=== PATIENT | female | born 1955 | race Caucasian/White ===

== ENCOUNTER 2017-08-28 22:40 | Inpatient (IN) | payer BC, MEDICAID, OTHER ==
[~2017-08-28] VITALS: Ht 170.2 cm; Wt 86.0 kg
[~2017-08-28 22:40] MED LIST: MELO1TAB56 PO
[2017-08-28] MEDS ORDERED: DILTIAZEM HCL 25 MG/5 ML VIAL IV ONE (23:00)
[2017-08-28] MEDS ORDERED: DIGOXIN (250MCG/ML) 2 ML AMPULE IV ONE (23:00)
[2017-08-28 23:04] LABS: Basophils # (auto) 0 uL; Basophils % (auto) 0.4 % (0.0-2.0); Eosinophils # (auto) 0.1 uL; Eosinophils % (auto) 1.2 % (0.0-7.0); Hematocrit 36.4 % (36.0-46.0); Hemoglobin 12.5 g/dL (12.2-16.2); Lymphocytes # (auto) 3.3 uL; Lymphocytes % (auto) 51.1 % (10.0-50.0); Mean Corpuscular Hemoglobin 30.6 pg (28.0-32.0); Mean Corpuscular Hgb Conc. 34.4 g/dL (32.0-36.0); Monocytes # (auto) 0.5 uL; Monocytes % (auto) 7.8 % (0.0-12.0); Neutrophils # (auto) 2.5 uL; Neutrophils % (auto) 39.5 % (37.0-80.0); Nucleated Red Blood Cells % 0.1 %; Platelet Count (auto) 226 10^3/uL (140-450); Red Blood Cells 4.09 10^6/uL (4.0-5.20); Red Cell Distribution Width 13.9 % (11.8-14.3); White Blood Cell 6.4 10^3/uL (4.4-10.8)
[2017-08-28] MEDS ORDERED: SODIUM CHLORIDE 0.9% 1,000 ML IV ONE (23:15)
[2017-08-28 23:19] LABS: INR 0.9 (0.9-1.15); Partial Thromboplastin Time 25.8 sec (22.64-33.71); Prothrombin Time 9.8 sec (9.37-12.3)
[2017-08-28 23:21] LABS: Albumin 3.7 g/dL (3.4-5.0); Anion Gap 12 (5-15); Blood Urea Nitrogen 24 mg/dL (7-18); Calcium 9.2 mg/dL (8.5-10.1); Carbon Dioxide 19 mmol/L (21-32); Chloride 110 mmol/L (98-107); Glucose 144 mg/dL (74-106); Magnesium 1.9 mg/dL (1.6-2.6); Potassium 3.4 mmol/L (3.5-5.1); Sodium 141 mmol/L (136-145)
[2017-08-28 23:23] LABS: Alanine Aminotransferase 45 U/L (13-56); Aspartate Aminotransferase 31 U/L (15-37); BUN/Creatinine Ratio 31.2; GFR African American 97 mL/min; GFR Non-African American 80 mL/min
[2017-08-28 23:28] LABS: Alkaline Phosphatase 88 U/L (45-117); Bilirubin, Total 0.3 mg/dL (0.2-1.0); Total Protein 6.7 g/dL (6.4-8.2)
[2017-08-29] MEDS ORDERED: DIGOXIN (250MCG/ML) 2 ML AMPULE IV ONE ×2 (00:15→17:15)
[2017-08-29] MEDS ORDERED: SODIUM CHLORIDE 0.9% 1,000 ML IV ONE (00:30)
[2017-08-29 00:53] LABS: Urine Bacteria NONE SEEN /hpf (None Seen); Urine Blood Negative /uL (Negative); Urine Specific Gravity 1.003 (1.001-1.035); Urine WBC 1 /hpf (0 - 5)
[2017-08-29] MEDS ORDERED: AMIODARONE HCL 150 MG in D5W 5% 100 ML IV ONE (02:45)
[2017-08-29] MEDS ORDERED: ACETAMINOPHEN 325 MG TAB PO PRN (02:45)
[2017-08-29] MEDS ORDERED: TEMAZEPAM 15 MG CAP PO PRN (02:45)
[2017-08-29] MEDS ORDERED: ONDANSETRON HCL 4 MG/2 ML VIAL IV PRN (02:45)
[2017-08-29] MEDS ORDERED: NITROGLYCERIN 0.4 MG SL TAB SL PRN (02:45)
[2017-08-29] MEDS ORDERED: MORPHINE SULFATE 4 MG/ML SYR/VIAL IV PRN (02:45)
[2017-08-29] MEDS ORDERED: POTASSIUM CHL 20 Meq TABLET PO ONE (02:45)
[2017-08-29] MEDS ORDERED: HYDROcodone-ACET 5/325MG TAB PO PRN (02:45)
[2017-08-29] MEDS ORDERED: AMIODARONE HCL 900 MG in DEXTROSE 500 ML IV SCH ×2 (02:46→08:46)
[2017-08-29] MEDS: SODIUM CHLORIDE 0.9% 1,000 ML IV SCH ×2 (03:03→16:19)
[2017-08-29] MEDS ORDERED: AMIODARONE HCL (50 MG/ ML) 3 ML VIAL IV ONE (03:08)
[2017-08-29] MEDS ORDERED: guaiFENesin-DM 100/10mg/5ml SYR PO ONE (05:45)
[2017-08-29] MEDS ORDERED: ENOXAPARIN SOD 40 MG/0.4 ML SYRINGE SC SCH (10:00)
[2017-08-29] MEDS: FAMOTIDINE 20 MG TAB PO SCH ×2 (10:35→22:20)
[2017-08-29] MEDS: ASPirin 81 mg TAB PO SCH (10:35)
[2017-08-29] MEDS ORDERED: IOHEXOL 350 MG/ML 100ML IJ ONE (13:49)
[2017-08-29] MEDS: IPRATROPIUM BROM 0.5 MG/2.5ML INH SOL NEB SCH ×3 (14:19→22:06)
[2017-08-29] MEDS: ALBUTEROL SULF 2.5 MG/0.5ML(0.5%) NEB SOLN NEB SCH ×3 (14:19→22:06)
[2017-08-29 15:10] VITALS: BP 101/64
[2017-08-29] MEDS: LIDOCAINE 5% TOPICAL PATCH TOP SCH (16:30)
[2017-08-29] MEDS: LEVOFLOXACIN 500MG 100 ML IV SCH (17:05)
[2017-08-29] MEDS: methylPREDNISolone SOD SUCC 40 MG/ML VL IV SCH ×2 (17:05→22:20)
[2017-08-29] MEDS ORDERED: ENOXAPARIN SOD 100 MG/1 ML SYRINGE SC SCH (22:00)
[2017-08-30] MEDS: ALBUTEROL SULF 2.5 MG/0.5ML(0.5%) NEB SOLN NEB SCH ×6 (02:35→22:00)
[2017-08-30] MEDS: IPRATROPIUM BROM 0.5 MG/2.5ML INH SOL NEB SCH ×6 (02:35→22:00)
[2017-08-30 03:54] LABS: Basophils # (auto) 0 uL; Eosinophils # (auto) 0 uL; Hematocrit 33.9 % (36.0-46.0); Hemoglobin 11.6 g/dL (12.2-16.2); Lymphocytes # (auto) 0.8 uL; Lymphocytes % (auto) 18.1 % (10.0-50.0); Mean Corpuscular Hemoglobin 30.9 pg (28.0-32.0); Mean Corpuscular Hgb Conc. 34.3 g/dL (32.0-36.0); Mean Corpuscular Volume 90.3 fL (80.0-100.0); Monocytes # (auto) 0.1 uL; Monocytes % (auto) 1.7 % (0.0-12.0); Neutrophils # (auto) 3.5 uL; Neutrophils % (auto) 80.2 % (37.0-80.0); Platelet Count (auto) 178 10^3/uL (140-450); Red Blood Cells 3.75 10^6/uL (4.0-5.20); Red Cell Distribution Width 14.4 % (11.8-14.3); White Blood Cell 4.4 10^3/uL (4.4-10.8)
[2017-08-30 03:57] LABS: Albumin 3.4 g/dL (3.4-5.0); Calcium 8.6 mg/dL (8.5-10.1); Potassium 4.1 mmol/L (3.5-5.1)
[2017-08-30 03:59] LABS: BUN/Creatinine Ratio 12.8
[2017-08-30 04:04] LABS: Bilirubin, Total 0.5 mg/dL (0.2-1.0); Total Protein 6.5 g/dL (6.4-8.2)
[2017-08-30] MEDS: SODIUM CHLORIDE 0.9% 1,000 ML IV SCH ×2 (05:25→20:00)
[2017-08-30 09:00] VITALS: BP 123/66
[2017-08-30] MEDS: FAMOTIDINE 20 MG TAB PO SCH ×2 (10:00→22:00)
[2017-08-30] MEDS: LIDOCAINE 5% TOPICAL PATCH TOP SCH (10:00)
[2017-08-30] MEDS: ENOXAPARIN SOD 80 MG/0.8ML SYRINGE SC SCH ×2 (11:11→22:17)
[2017-08-30] MEDS: ASPirin 81 mg TAB PO SCH (11:11)
[2017-08-30] MEDS: methylPREDNISolone SOD SUCC 40 MG/ML VL IV SCH ×2 (11:12→22:17)
[2017-08-30] MEDS: AMIODARONE HCL 200 MG TAB PO SCH (11:16)
[2017-08-30] MEDS: LEVOFLOXACIN 500MG 100 ML IV SCH (11:16)
[2017-08-30 13:00] VITALS: BP 132/83
[2017-08-30 17:00] VITALS: BP 136/82
[2017-08-30 23:38] VITALS: BP 140/80
[2017-08-31] MEDS: IPRATROPIUM BROM 0.5 MG/2.5ML INH SOL NEB SCH ×6 (02:00→22:28)
[2017-08-31] MEDS: ALBUTEROL SULF 2.5 MG/0.5ML(0.5%) NEB SOLN NEB SCH ×6 (02:00→22:28)
[2017-08-31 05:25] VITALS: BP 140/76
[2017-08-31 08:07] VITALS: BP 141/80
[2017-08-31] MEDS: FAMOTIDINE 20 MG TAB PO SCH ×2 (10:00→21:49)
[2017-08-31] MEDS: LIDOCAINE 5% TOPICAL PATCH TOP SCH (10:44)
[2017-08-31] MEDS: LEVOFLOXACIN 500MG 100 ML IV SCH (10:44)
[2017-08-31] MEDS: AMIODARONE HCL 200 MG TAB PO SCH (10:45)
[2017-08-31] MEDS: ASPirin 81 mg TAB PO SCH (10:46)
[2017-08-31] MEDS: ENOXAPARIN SOD 80 MG/0.8ML SYRINGE SC SCH ×2 (10:47→21:49)
[2017-08-31] MEDS: methylPREDNISolone SOD SUCC 40 MG/ML VL IV SCH ×2 (10:48→21:48)
[2017-08-31] MEDS: SODIUM CHLORIDE 0.9% 1,000 ML IV SCH ×2 (10:49→21:52)
[2017-08-31 12:22] VITALS: BP 129/75
[2017-08-31 16:00] VITALS: BP 140/92
[2017-08-31 20:00] VITALS: BP 137/88
[2017-08-31 22:00] VITALS: BP 137/88
[2017-09-01] MEDS: IPRATROPIUM BROM 0.5 MG/2.5ML INH SOL NEB SCH ×3 (03:50→09:59)
[2017-09-01] MEDS: ALBUTEROL SULF 2.5 MG/0.5ML(0.5%) NEB SOLN NEB SCH ×3 (03:50→09:59)
[2017-09-01 05:00] VITALS: BP 134/66
[2017-09-01 08:00] VITALS: BP 137/57
[2017-09-01 09:55] VITALS: BP 133/54
[2017-09-01] MEDS: LEVOFLOXACIN 500MG 100 ML IV SCH (09:57)
[2017-09-01] MEDS: methylPREDNISolone SOD SUCC 40 MG/ML VL IV SCH (09:57)
[2017-09-01] MEDS: ASPirin 81 mg TAB PO SCH (09:58)
[2017-09-01] MEDS: AMIODARONE HCL 200 MG TAB PO SCH (09:58)
[2017-09-01] MEDS: ENOXAPARIN SOD 80 MG/0.8ML SYRINGE SC SCH (09:59)
[2017-09-01] MEDS: LIDOCAINE 5% TOPICAL PATCH TOP SCH (09:59)
[2017-09-01] MEDS: FAMOTIDINE 20 MG TAB PO SCH (09:59)
== END 2017-09-01 12:29 | disposition home or self-care (01) | DRG 140 ==
LOC: ER 22:40 → EDBD 22:40 → EDUNIT# 22:40 → OVERFLOW 22:41 → TELE-WESTW 08-30 08:38
PROVIDERS: ADMIT Nurse Practitioner; ATTEND Internal Medicine
DX: J44.0 Chronic obstructive pulmonary disease with (acute) lower respiratory infection (principal); I95.9 Hypotension, unspecified; I48.0 Paroxysmal atrial fibrillation; I10 Essential (primary) hypertension; J20.9 Acute bronchitis, unspecified; J44.1 Chronic obstructive pulmonary disease with (acute) exacerbation; M19.90 Unspecified osteoarthritis, unspecified site; E87.6 Hypokalemia; Z87.891 Personal history of nicotine dependence
CPT/HCPCS: 36415; 71045; 71275; 80053; 81001; 83735; 83880; 84443; 84484; 85025; 85379; 85610; 85730; 87081; 93306; 94640; 94761; 96361; 96365; 96375; G0378; J1956; J7060

== ENCOUNTER 2019-01-13 14:18 | Inpatient (IN) | payer MEDICAID, OTHER ==
[~2019-01-13] VITALS: Ht 175.3 cm; Wt 72.2 kg
[2019-01-13 15:04] LABS: Basophils # (auto) 0 uL; Basophils % (auto) 0.5 % (0.0-2.0); Eosinophils # (auto) 0.1 uL; Hematocrit 40.3 % (36.0-46.0); Hemoglobin 14.2 g/dL (12.2-16.2); Lymphocytes # (auto) 2.8 uL; Lymphocytes % (auto) 38.4 % (10.0-50.0); Mean Corpuscular Hemoglobin 31.2 pg (28.0-32.0); Mean Corpuscular Hgb Conc. 35.2 g/dL (32.0-36.0); Mean Corpuscular Volume 88.8 fL (80.0-100.0); Monocytes # (auto) 0.5 uL; Monocytes % (auto) 6.5 % (0.0-12.0); Neutrophils # (auto) 3.9 uL; Neutrophils % (auto) 53.6 % (37.0-80.0); Platelet Count (auto) 244 10^3/uL (140-450); Red Blood Cells 4.54 10^6/uL (4.0-5.20); Red Cell Distribution Width 13.3 % (11.8-14.3); White Blood Cell 7.4 10^3/uL (4.4-10.8)
[2019-01-13] MEDS ORDERED: SODIUM CHLORIDE 0.9% 1,000 ML IV ONE (15:15)
[2019-01-13] MEDS ORDERED: DILTIAZEM HCL 25 MG/5 ML VIAL IV ONE ×2 (15:15→15:45)
[2019-01-13 15:20] LABS: Albumin 4.1 g/dL (3.4-5.0); Anion Gap 10 (5-15); Blood Urea Nitrogen 18 mg/dL (7-18); Calcium 9.4 mg/dL (8.5-10.1); Carbon Dioxide 21 mmol/L (21-32); Chloride 109 mmol/L (98-107); Glucose 129 mg/dL (74-106); Potassium 3.8 mmol/L (3.5-5.1); Sodium 140 mmol/L (136-145)
[2019-01-13 15:25] LABS: Alanine Aminotransferase 42 U/L (13-56); Alkaline Phosphatase 87 U/L (45-117); Aspartate Aminotransferase 34 U/L (15-37); BUN/Creatinine Ratio 24.3; Bilirubin, Total 0.6 mg/dL (0.2-1.0); GFR African American 102 mL/min; GFR Non-African American 84 mL/min; Total Protein 7.3 g/dL (6.4-8.2)
[2019-01-13 15:51] LABS: INR < 0.93 (0.9-1.15); Partial Thromboplastin Time 26.2 sec (23.64-32.05)
[2019-01-13] MEDS ORDERED: AMIODARONE HCL 900 MG in DEXTROSE 500 ML IV SCH (17:28)
[2019-01-13] MEDS ORDERED: AMIODARONE HCL 150 MG in D5W 5% 100 ML IV ONE (17:30)
[2019-01-13] MEDS ORDERED: MORPHINE SULF INJ 2 MG/ML SYRINGE 1ML IV PRN ×2 (18:15)
[2019-01-13] MEDS ORDERED: ONDANSETRON HCL 4 MG/2 ML VIAL IV PRN (18:15)
[2019-01-13] MEDS ORDERED: NITROGLYCERIN 0.4 MG SL TAB SL PRN (18:15)
[2019-01-13] MEDS ORDERED: ACETAMINOPHEN 500 MG TAB PO PRN (18:15)
[2019-01-13] MEDS ORDERED: HYDROcodone-ACET 5/325MG TAB PO PRN (18:15)
[2019-01-13 21:25] VITALS: BP 130/83
--- NOTE | 2019-01-13 21:25 | NUR ---
Admit to [facility] admitted to [facility] A/O x 4 via gurney on monitoring specialist, and portable 02. Patient transferred to bed, connected to unit monitoring, afib @ 130 and room air,sat 96% and weighed by bedscale. Patient oriented to Conchita Nath, primary RN, unit, room, bed, and unit policies regarding patient care and visiting hours. All questions and concerns addressed, patient verbalized understanding. NOTE: Amiodarone infusing in the right antecubital area @ 1mg/min.
[2019-01-13 21:30] VITALS: BP 130/83
[2019-01-13] MEDS: METOPROLOL TARTRATE 25 MG TAB PO SCH (22:54)
[2019-01-13] MEDS ORDERED: TIOT1AER IN (23:05)
[2019-01-13] MEDS: AMIODARONE HCL 900 MG in DEXTROSE 500 ML IV SCH (23:28)
--- NOTE | 2019-01-13 23:28 | NUR ---
Amiodarone regulated to 0.5mg/min per protocol, still afib 80's.
[2019-01-14] VITALS (7 sets, daily range): BP systolic 95–130; BP diastolic 44–70
--- NOTE | 2019-01-14 01:47 | NUR ---
CRITICAL TROP 0.83, CARDIOLOGY CONSULT PENDING AND WAS CALLED TO DR. DELGADO, PT IS ASYMPTOMATIC NO COMPLAINTS OF CHEST PAIN.
[2019-01-14 05:29] LABS: Basophils # (auto) 0 uL; Basophils % (auto) 0.4 % (0.0-2.0); Eosinophils # (auto) 0.1 uL; Eosinophils % (auto) 1.5 % (0.0-7.0); Hemoglobin 12.6 g/dL (12.2-16.2); Lymphocytes # (auto) 2.1 uL; Lymphocytes % (auto) 34.3 % (10.0-50.0); Mean Corpuscular Hemoglobin 30.8 pg (28.0-32.0); Mean Corpuscular Hgb Conc. 34.2 g/dL (32.0-36.0); Mean Corpuscular Volume 90.2 fL (80.0-100.0); Monocytes # (auto) 0.5 uL; Monocytes % (auto) 7.7 % (0.0-12.0); Neutrophils # (auto) 3.4 uL; Neutrophils % (auto) 56.1 % (37.0-80.0); Nucleated Red Blood Cells % 0.1 %; Platelet Count (auto) 207 10^3/uL (140-450); Red Cell Distribution Width 13.3 % (11.8-14.3); White Blood Cell 6.1 10^3/uL (4.4-10.8)
[2019-01-14 05:44] LABS: INR 0.95 (0.9-1.15); Partial Thromboplastin Time 25.8 sec (23.64-32.05)
[2019-01-14 06:12] LABS: BUN/Creatinine Ratio 20.3; Calcium 8.9 mg/dL (8.5-10.1)
[2019-01-14 07:12] LABS: Potassium 4.4 mmol/L (3.5-5.1)
--- NOTE | 2019-01-14 08:00 | NUR ---
End of shift note: Patient sitting up in bed receiving breathing treatment from RT. Patient A&O x self. Patient on the monitor, 3L NC saturation at 98%. Sanchez to gravity. Left AC 22G saline locked, patent, clean, dry, and intact. Peg tube right upper quadrant ABD clean dry, and intact running Jevity at 50ml/hr. No S/S of distress/SOB or pain. Bed locked and in the lowest position, side rails up x2, call light with in reach. Report to be given to customer program manager RN. Will continue to monitor. Addendum: 01/14/19 at 1822 by Angie Michael RN wrong patient
--- NOTE | 2019-01-14 08:00 | NUR ---
Opening Shift Note Assumed care of patient, awake and alert. Patient A&Ox4. Patient on the monitor. Patient on room air saturation at 94%, patient refused to wear NC at this time. IV right forearm 20G running Amiodarone at 0.5mg/hr, patent, clean, dry, and intact. Assisted patient to the bathroom with standby assist. Patient now sitting up on bedside chair. No S/S of distress/SOB or pain. Bed locked and in the lowest position, call light with in reach. Instructed on POC and to call for assist. Will continue to monitor.
--- NOTE | 2019-01-14 08:30 | NUR ---
Patient sitting up in bedside chair eating breakfast independently. Will continue to monitor.
[2019-01-14] MEDS: METOPROLOL TARTRATE 25 MG TAB PO SCH ×2 (09:50→22:21)
[2019-01-14] MEDS: FAMOTIDINE 20 MG TAB PO SCH (09:50)
[2019-01-14] MEDS ORDERED: ASPirin-EC 81 mg tab PO SCH (10:00)
[2019-01-14] MEDS ORDERED: ENOXAPARIN SOD 40 MG/0.4 ML SYRINGE SC SCH (10:00)
--- NOTE | 2019-01-14 10:00 | NUR ---
Medication dosages, usages, and side effects explained to patient. Patient verbalized understanding. Will continue to monitor.
--- NOTE | 2019-01-14 11:00 | NUR ---
Cynthia Brady DIRECTOR STUDENT UNION at bedside.
--- NOTE | 2019-01-14 12:30 | NUR ---
Patient sitting up on side of bed eating lunch independently. Will continue to monitor.
--- NOTE | 2019-01-14 15:00 | NUR ---
Dr. Painting at bedside.
[2019-01-14] MEDS ORDERED: SODIUM CHLORIDE 0.9% 1,000 ML IV SCH (16:07)
--- NOTE | 2019-01-14 16:30 | NUR ---
Cynthia Brady PRIME MINISTER at bedside. Explained to patient that they want to perform an Angiogram tomorrow. Patient agreed to have procedure.
[2019-01-14] MEDS: AMIODARONE HCL 900 MG in DEXTROSE 500 ML IV SCH (16:52)
--- NOTE | 2019-01-14 17:15 | NUR ---
Patient sitting up in bedside chair. No S/S of pain/SOB or distress at this time. Will continue to monitor.
--- NOTE | 2019-01-14 18:22 | NUR ---
End of shift Note: Patient sitting up in bedside chair eating dinner. Patient A&Ox4. Patient on the monitor. Patient on room air saturation at 96%. IV left forearm 20G running Amiodarone at 0.5mg/hr, patent, clean, dry, and intact. No S/S of distress/SOB or pain. Bed locked and in the lowest position, call light with in reach. Report to be given to rn night RN. Will continue to monitor.
--- NOTE | 2019-01-14 19:25 | NUR ---
OPENING SHIFT RECEIVED REPORT FROM DAY SHIFT RN. ASSUMED CARE OF PATIENT. PATIENT IN BED READING WITH NO SIGNS OR SYMPTOMS OF SOB, PAIN OR DISTRESS. CURRENTLY ON ROOM AIR, 02 SAT - 94%. UPDATED PATIENT ON PLAN OF CARE. LEFT FOREARM IV - CLEAN/DRY/INTACT. BED IN LOWEST POSITION, SIDE RAILS UP X2, CALL LIGHT WITHIN REACH. WILL CONTINUE TO MONITOR.
--- NOTE | 2019-01-15 01:15 | NUR ---
ROUNDS PATIENT IN BED SLEEPING WITH NO SIGNS OR SYMPTOMS OF SOB, PAIN OR DISTRESS. CURRENTLY ON ROOM AIR, 02 SAT - 96%. REPOSITIONED FOR COMFORT. BED IN LOWEST POSITION, SIDE RAILS UP X2, CALL LIGHT WITHIN REACH. WILL CONTINUE TO MONITOR.
[2019-01-15 04:00] VITALS: BP 149/64
[2019-01-15 05:40] LABS: Basophils # (auto) 0 uL; Basophils % (auto) 0.5 % (0.0-2.0); Eosinophils # (auto) 0.1 uL; Eosinophils % (auto) 1.4 % (0.0-7.0); Hematocrit 37.5 % (36.0-46.0); Hemoglobin 12.8 g/dL (12.2-16.2); Lymphocytes # (auto) 2.1 uL; Lymphocytes % (auto) 35.3 % (10.0-50.0); Mean Corpuscular Hemoglobin 31.1 pg (28.0-32.0); Mean Corpuscular Hgb Conc. 34.1 g/dL (32.0-36.0); Mean Corpuscular Volume 91.1 fL (80.0-100.0); Monocytes # (auto) 0.5 uL; Monocytes % (auto) 7.9 % (0.0-12.0); Neutrophils # (auto) 3.2 uL; Neutrophils % (auto) 54.9 % (37.0-80.0); Platelet Count (auto) 211 10^3/uL (140-450); Red Blood Cells 4.12 10^6/uL (4.0-5.20); Red Cell Distribution Width 13.4 % (11.8-14.3); White Blood Cell 5.9 10^3/uL (4.4-10.8)
[2019-01-15 05:59] LABS: BUN/Creatinine Ratio 18.8; Calcium 9.2 mg/dL (8.5-10.1); Potassium 4.2 mmol/L (3.5-5.1)
[2019-01-15 06:11] LABS: INR 0.95 (0.9-1.15); Partial Thromboplastin Time 26.2 sec (23.64-32.05)
--- NOTE | 2019-01-15 06:40 | NUR ---
END OF SHIFT PATIENT IN BED SLEEPING WITH NO SIGNS OR SYMPTOMS OF SOB, PAIN OR DISTRESS. CURRENTLY ON ROOM AIR, 02 SAT - 96%. REPOSITIONED FOR COMFORT. LEFT HAND AND LEFT FOREARM IV - CLEAN/DRY/INTACT. BED IN LOWEST POSITION, SIDE RAILS UP X2, CALL LIGHT WITHIN REACH. WILL ENDORSE CARE TO DAY SHIFT RN.
--- NOTE | 2019-01-15 07:30 | NUR ---
RECEIVED PATIENT SITTING UP IN THE BED TALKING ON THE PHONE A/O TIMES 4, O2 BY R/A, STATES SHE CAN GO TO THE BR, AWARE THAT SHE IS GOING FOR A HEART CATH TODAY AND IS NPO, SALINE LOCK TO THE LEFT HAND 20G FLUSHED AND PATENT, LFA 20G WITH AMIODARONE DRIP AT 16.66ML/HR INFUSING BY THE IV PUMP, DENIES PAIN
--- NOTE | 2019-01-15 07:50 | NUR ---
NOTIFIED BY RYANNE IN THE [employer] THAT THEY WILL BE HERE TO PICK THE PATIENT UP ABOUT 0830, MADE PATIENT AWARE
[2019-01-15 08:00] VITALS: BP 100/67
--- NOTE | 2019-01-15 08:00 | NUR ---
TALKING TO HER ON THE PHONE TO TELL HIM SHE IS GOING FOR THE HEART CATH EARLY
[2019-01-15] MEDS ORDERED: IOHEXOL 350 MG/ML 100ML IJ ONE (08:08)
[2019-01-15] MEDS ORDERED: LIDOCAINE 2%HCL (LOCAL ANESTH.) INJ 20ML MDV ONE (08:08)
--- NOTE | 2019-01-15 08:15 | NUR ---
TO THE BR TO TRY AND HAVE A BM BUT NO SUCCESS
--- NOTE | 2019-01-15 08:30 | NUR ---
[employer] EQUIPMENT REPAIRER PERSONN[employer] HERE TO DO PRE-OP SHAVING AND CHART CHECK
--- NOTE | 2019-01-15 08:45 | NUR ---
TRANSPORTED TO THE LOADING MACHINE TOOL SETTER BY THE BED FOR HEART CATH
[2019-01-15] MEDS ORDERED: fentaNYL CITRATE 100 MCG/2 ML VL ONE (09:07)
[2019-01-15] MEDS ORDERED: MIDAZOLAM HCL 1MG/1ML-2 ML VIAL ONE (09:07)
[2019-01-15] MEDS ORDERED: ANGIOMAX 250 MG VIAL IV ONE (09:07)
[2019-01-15] MEDS ORDERED: SODIUM CHL 0.9% 0 ML ONE (09:08)
--- NOTE | 2019-01-15 10:40 | NUR ---
BACK FROM THE BIRD TENDER, RT GROIN SITE BENIGN, SITE SOFT TO THE TOUCH
[2019-01-15] MEDS ORDERED: DIGOXIN (250MCG/ML) 2 ML AMPULE IV ONE ×2 (10:45→12:00)
--- NOTE | 2019-01-15 11:00 | NUR ---
PATIENT MOVING AROUND IN THE BED, EXPRESS TO HER NOT TO MOVE AROUND WE DON'T WANT THE SITE TO BLEED
[2019-01-15] MEDS: APIXABAN 2.5 MG TAB PO SCH ×2 (11:17→21:19)
[2019-01-15] MEDS: FAMOTIDINE 20 MG TAB PO SCH (11:17)
[2019-01-15] MEDS: METOPROLOL TARTRATE 25 MG TAB PO SCH (11:20)
--- NOTE | 2019-01-15 11:20 | NUR ---
EXPLAIN MEDICATIONS TO THE PATIENT REGARDING THE DOSAGE, USAGE AND THE SIDE EFFECTS, VERBALIZED THAT SHE UNDERSTOOD,
--- NOTE | 2019-01-15 11:30 | NUR ---
DIGOXIN GIVEN OVER 5MINUTES
--- NOTE | 2019-01-15 11:30 | NUR ---
SMALL AMOUNT OF BLEEDING TO THE RT GROIN SITE, HELD PRESSURE FOR 5 MINUTES, SITE STILL SOFT TO THE TOUCH, DRESSING MARKED
--- NOTE | 2019-01-15 11:45 | NUR ---
PATIENT STATES SHE GOT FLUSHED AFTER THE DIGOXIN WAS GIVEN AND FELT WEIRD BUT IS WENT AWAY STILL IN AFIB
[2019-01-15 11:51] VITALS: BP 118/79
--- NOTE | 2019-01-15 12:01 | NUR ---
AT THE BEDSIDE TALKING TO THE PATIENT
[2019-01-15] MEDS ORDERED: ALUM & MAG HYDROX-SIMETH LIQ(MAALOX) 30 ML PO PRN (13:00)
--- NOTE | 2019-01-15 13:00 | NUR ---
WAS ABLE TO SIT UP IN BED AND EAT HER LUNCH NO HELP NEEDED
--- NOTE | 2019-01-15 14:15 | NUR ---
LYING IN BED APPEARS TO BE SLEEPING
--- NOTE | 2019-01-15 15:35 | NUR ---
PATIENTS IN TO SEE THE PATIENT AND BROUGHT IN HER GRANDSON WHICH SHE HAS BEEN RAISING SINCE HE WAS 1YRS OLD, ONLY STAYED A FEW MINUTES
--- NOTE | 2019-01-15 15:39 | NUR ---
UP TO THE BR AND URINATED, RT GROIN SITE BENIGN, AND SOFT TO THE TOUCH
--- NOTE | 2019-01-15 15:40 | NUR ---
RT GROIN SITE DRESSING STILL HAS THE SMALL AMOUNT OF BLOOD TO IT PREVIOUS MARKINGS
[2019-01-15 16:00] VITALS: BP 102/64
[2019-01-15] MEDS: DILTIAZEM HCL 120MG ER CAP PO SCH (16:19)
--- NOTE | 2019-01-15 16:22 | NUR ---
PATIENT REFUSED TO TAKE THE CARDIZEM DUE TO B/P BEING 98/54, AND IT WAS IN THE 90'S PREVIOUS AN SHE STATED SHE FELT BAD AND DOESN'T WANT TO FEEL LIKE THAT AGAIN
--- NOTE | 2019-01-15 16:48 | NUR ---
B/P RECHECKED , STILL REFUSED TO TAKE THE CARDIZEM, TALKING ON THE PHONE
--- NOTE | 2019-01-15 17:17 | NUR ---
patient coughing states it feels like he has mucus stuck in his throat, gave some warm water to let him gargle Addendum: 01/15/19 at 1721 by Olivia Christiansen RN disregard the wrong patient
--- NOTE | 2019-01-15 17:21 | NUR ---
PATIENT GETTING UP TO THE BR TO HAVE A BM BUT NO RESULTS, EXPRESS TO HER THAT SHE SHOULD NOT BEING STRAINING TO HAVE A BM AND TRY NOT TO GET UP SOME MUCH, BECAUSE SHE DOESN'T WANT HER RT GROIN TO START BLEEDING, SAYS SHE UNDERSTANDS
--- NOTE | 2019-01-15 17:25 | NUR ---
RT GROIN DRESSING HAS A LITTLE MORE DRAINAGE TO IT, LIGHT PINK, BUT SITE IS SOFT TO THE TOUCH
--- NOTE | 2019-01-15 18:18 | NUR ---
DRAINAGE CIRCLED TO THE RT GROIN DRESSING FOR THE PLASTERER HELPER, RT GROIN SITE STILL SOFT TO THE TOUCH, DENIES PAIN, O2 BY R/A, SALINE LOCK 20G TO THE LFA AND TO THE LEFT HAND BOTH INTACT AND PATENT, USES THE BR, A/O TIMES 4 , DENIES PAIN, STILL HASN'T HAD A BM YET, WILL CONTINUE TO MONITOR AND GIVE REPORT TO THE NEXT SHIFT
--- NOTE | 2019-01-15 19:15 | NUR ---
OPENING SHIFT RECEIVED REPORT FROM DAY SHIFT RN. ASSUMED CARE OF PATIENT. PATIENT IN BED WATCHING TV WITH NO SIGNS OR SYMPTOMS OF SOB, PAIN OR DISTRESS. UPDATED PATIENT ON PLAN OF CARE. LEFT HAND AND LEFT FOREARM IV - CLEAN/DRY/INTACT. REPOSITIONED FOR COMFORT. RIGHT GROIN DRESSING S/P HEART CATH - MINIMAL DRAINAGE, NO SIGNS OF HEMATOMA OR PAIN AT SITE. BILATERAL PEDAL PULSES PRESENT. BED IN LOWEST POSITION, SIDE RAILS UP X2, CALL LIGHT WITHIN REACH. WILL CONTINUE TO MONITOR.
[2019-01-15 20:00] VITALS: BP 96/56
--- NOTE | 2019-01-15 23:30 | NUR ---
ROUNDS PATIENT IN BED SLEEPING WITH NO SIGNS OR SYMPTOMS OF SOB, PAIN OR DISTRESS. REPOSITIONED FOR COMFORT. BED IN LOWEST POSITION, SIDE RAILS UP X2, CALL LIGHT WITHIN REACH. WILL CONTINUE TO MONITOR.
[2019-01-15 23:55] VITALS: BP 91/60
[2019-01-16 04:00] VITALS: BP_SYST 101; BP_SYST 81; BP_DIAS 36; BP_DIAS 55
--- NOTE | 2019-01-16 05:18 | NUR ---
MORNING CARE PATIENT REFUSED MORNING CARE AT THIS TIME. CLEAN LINEN, WASH CLOTHS AND GOWN LEFT AT BED SIDE.
--- NOTE | 2019-01-16 05:18 | NUR ---
IV REMOVAL LEFT FOREARM IV REMOVED DUE TO INFILTRATION. CATHETER INTACT. WILL CONTINUE TO MONITOR.
--- NOTE | 2019-01-16 06:00 | NUR ---
MORNING CARE PATIENT PERFORMED MORNING CARE ON SELF, STANDBY ASSIST. PARTIAL LINEN CHANGE AND GOWN CHANGED.
--- NOTE | 2019-01-16 06:38 | NUR ---
END OF SHIFT PATIENT SITTING UP IN BED WITH NO SIGNS OR SYMPTOMS OF SOB, PAIN OR DISTRESS. CURRENTLY ON ROOM AIR, 02 SAT - 97%. UPDATED PATIENT ON PLAN OF CARE. LEFT HAND IV - CLEAN/DRY/INTACT. RIGHT GROIN DRESSING S/P HEART CATH - CLEAN/DRY/INTACT, WITH NO SIGNS OF HEMATOMA OR BLEEDING. BED IN LOWEST POSITION, SIDE RAILS UP X2, CALL LIGHT WITHIN REACH. WILL ENDORSE CARE TO DAY SHIFT RN.
--- NOTE | 2019-01-16 07:30 | NUR ---
RECEIVED PATIENT SITTING UP IN BED, A/O TIMES 4, O2 BY R/A, LEFT HAND 20G INTACT, DENIES PAIN, RT GROIN DRESSING INTACT, SITE SOFT TO THE TOUCH, GETS UP TO THE BATHROOM WITHOUT HELP
[2019-01-16 07:45] VITALS: BP 125/67
--- NOTE | 2019-01-16 08:29 | NUR ---
SITTING UP IN BED EATING HER BREAKFAST, NO HELP NEEDED TO EAT
--- NOTE | 2019-01-16 09:20 | NUR ---
UP TO THE BR NO HELP NEEDED
--- NOTE | 2019-01-16 09:52 | NUR ---
SITTING UP ON THE SIDE OF THE BED TALKING ON THE PHONE
[2019-01-16] MEDS: APIXABAN 2.5 MG TAB PO SCH ×2 (10:04→21:48)
[2019-01-16] MEDS: DILTIAZEM HCL 120MG ER CAP PO SCH (10:05)
[2019-01-16] MEDS: FAMOTIDINE 20 MG TAB PO SCH (10:05)
[2019-01-16] MEDS: DIGOXIN 0.25 MG TAB PO SCH (10:06)
--- NOTE | 2019-01-16 10:20 | NUR ---
EXPLAIN MEDICATIONS TO THE PATIENT REGARDING THE DOSAGE,USAGE, AND THE SIDE EFFECTS, VERBALIZED THAT SHE UNDERSTOOD AND MEDS GIVEN ORDERED
--- NOTE | 2019-01-16 10:33 | NUR ---
ICE PACK APPLIED TO THE LEFT FOREARM WHICH IS SWOLLEN AND WARM TO THE TOUCH, PATIENT STATES IT STARTED SWELLING THIS MORNING ABOUT 0500, NO IV FLUIDS INFUSING INTO THE ARM SINCE YESTERDAY MORNING
--- NOTE | 2019-01-16 11:27 | NUR ---
NO COMPLAINTS, SITTING UP IN BED TALKING ON THE PHONE
[2019-01-16 11:49] VITALS: BP 110/52
--- NOTE | 2019-01-16 12:23 | NUR ---
PATIENT SITTING UP IN THE BED DOING ARM EXERCISES ON HIS OWN Addendum: 01/16/19 at 1225 by Olivia Christiansen RN DISREGARD WRONG PATIENT
--- NOTE | 2019-01-16 12:25 | NUR ---
LYING IN BED ICE STILL TO THE LEFT ARM
--- NOTE | 2019-01-16 13:09 | NUR ---
SITTING UP IN BED EATING HER LUNCH,
--- NOTE | 2019-01-16 14:05 | NUR ---
WATCHING TV, NO COMPLAINTS
--- NOTE | 2019-01-16 15:13 | NUR ---
ICE PACK TO THE LFA AND ELEVATED ON PILLOWS, PATIENT TALKING ON THE PHONE
[2019-01-16 15:40] VITALS: BP 114/63
--- NOTE | 2019-01-16 16:25 | NUR ---
PATIENT SITTING UP IN THE BED TALKING ON THE FOOD, NO COMPLAINTS HAS BEEN UP WALING IN THE ROOM, HAS ICE TO THE LFA AND ELEVATED ON A PILLOW, STILL HAS A SMALL AMOUNT OF SWELLING
--- NOTE | 2019-01-16 17:15 | NUR ---
UP TO THE BR AND URINATED, WALKING IN THE ROOM DENIES CHEST PAIN
--- NOTE | 2019-01-16 18:20 | NUR ---
SITTING UP IN BED EATING HER DINNER, O2 BY R/A, A/O TIMES 4, GETS UP TO THE BR, SALINE LOCK TO THE LEFT HAND 20G, DRESSING TO THE RT GROIN NO NEW DRAINAGE SEEN, EXPRESS TO THE PATIENT THAT WE CAN CHANGE IT, STATES SHE WILL DO IT AFTER SHE GETS TO GO HOME AND TAKE A SHOWER, DENIES PAIN STILL HAS SOME SWELLING TO THE LFA, WILL CONTINUE TO MONITOR AND GIVE REPORT TO THE NEXT SHIFT.
--- NOTE | 2019-01-16 18:45 | NUR ---
DR LEZAMA IN TO SEE THE PATIENT AND WROTE DISCHARGE FOR TOMORROW MORNING, STATES SHE WILL BE IN TO SEE THE PATIENT BEFORE SHE IS TO BE DISCHARGED, CHANGED DRESSING TO THE RT GROIN AND SITE BENIGN AND PLACED BAND AID TO THE SITE, PRESCRIPTIONS GIVEN TO THE PATIENT
--- NOTE | 2019-01-16 19:20 | NUR ---
OPENING SHIFT RECEIVED REPORT FROM DAY SHIFT RN. ASSUMED CARE OF PATIENT. PATIENT SITTING UP IN BED WITH NO SIGNS OR SYMPTOMS OF SOB, PAIN OR DISTRESS. CURRENTLY ON ROOM AIR, 02 SAT - 97%. UPDATED PATIENT ON PLAN OF CARE. LEFT HAND IV - CLEAN/DRY/INTACT. BED IN LOWEST POSITION, SIDE RAILS UP X2, CALL LIGHT WITHIN REACH. WILL CONTINUE TO MONITOR.
[2019-01-16 20:02] VITALS: BP 112/62
[2019-01-16 23:46] VITALS: BP 97/57
--- NOTE | 2019-01-17 01:10 | NUR ---
ROUNDS PATIENT IN BED SLEEPING WITH NO SIGNS OR SYMPTOMS OF SOB, PAIN OR DISTRESS. BED IN LOWEST POSITION, SIDE RAILS UP X2, CALL LIGHT WITHIN REACH. WILL CONTINUE TO MONITOR.
[2019-01-17 04:00] VITALS: BP 101/51
--- NOTE | 2019-01-17 04:49 | NUR ---
MORNING CARE PATIENT REFUSED MORNING CARE AT THIS TIME. CLEAN LINEN, GOWN AND WASH CLOTHS LEFT AT BEDSIDE.
--- NOTE | 2019-01-17 07:25 | NUR ---
END OF SHIFT PATIENT SITTING UP IN BED WATCHING TV WITH NO SIGNS OR SYMPTOMS OF SOB, PAIN OR DISTRESS. UPDATED PATIENT ON PLAN OF CARE.LEFT HAND IV - CLEAN/DRY/INTACT. BED IN LOWEST POSITION, SIDE RAILS UPX2, CALL LIGHT WITHIN REACH. WILL ENDORSE CARE TO DAY SHIFT RN.
--- NOTE | 2019-01-17 07:30 | NUR ---
Opening note; Patient A&O x 4, denies any pain, patient states they are ready to go home. Patient was updated on plan of care, As soon as Dr. Beckman sees patient she will be able to go home, patient understands. Vital Signs WNL. Continue to monitor.
[2019-01-17 08:00] VITALS: BP 113/68
--- NOTE | 2019-01-17 09:58 | NUR ---
Dr. Beckman at bedside with patient.
[2019-01-17] MEDS: APIXABAN 2.5 MG TAB PO SCH (10:10)
[2019-01-17] MEDS: FAMOTIDINE 20 MG TAB PO SCH (10:10)
[2019-01-17] MEDS: DILTIAZEM HCL 120MG ER CAP PO SCH (10:10)
[2019-01-17] MEDS: DIGOXIN 0.25 MG TAB PO SCH (10:10)
[2019-01-17 11:26] VITALS: BP 138/74
--- NOTE | 2019-01-17 11:59 | NUR ---
D/C & IV d/c IV discontinued, site benign, catheter intact, pressure dressing applied. Patient discharged via wheel chair, no questions at this time, D/C instructions explained in detail. Is aware to follow up with primary and Socrates Avila (Lead Mechanic). Patient vital signs WNL.
[2019-01-17 12:00] VITALS: BP 121/69
== END 2019-01-17 12:04 | disposition home or self-care (01) | DRG 281 ==
LOC: ER 14:18 → TELE 14:19 → DOU IN ICU 20:11
PROVIDERS: ADMIT Nurse Practitioner Acute Care; ATTEND Internal Medicine
PROC: B2111ZZ Fluoroscopy of Multiple Coronary Arteries using Low Osmolar Contrast (ICD-10-PCS; principal; 2019-01-15)
PROC: 4A023N7 Measurement of Cardiac Sampling and Pressure, Left Heart, Percutaneous Approach (ICD-10-PCS; 2019-01-15)
PROC: B2151ZZ Fluoroscopy of Left Heart using Low Osmolar Contrast (ICD-10-PCS; 2019-01-15)
DX: I48.0 Paroxysmal atrial fibrillation (principal); I21.A1 Myocardial infarction type 2; I50.42 Chronic combined systolic (congestive) and diastolic (congestive) heart failure; M19.90 Unspecified osteoarthritis, unspecified site; J43.9 Emphysema, unspecified; F20.9 Schizophrenia, unspecified; F41.9 Anxiety disorder, unspecified; E02 Subclinical iodine-deficiency hypothyroidism; I11.0 Hypertensive heart disease with heart failure; Z80.1 Family history of malignant neoplasm of trachea, bronchus and lung; Z82.49 Family history of ischemic heart disease and other diseases of the circulatory system; Z90.710 Acquired absence of both cervix and uterus; Z87.891 Personal history of nicotine dependence; Z88.8 Allergy status to other drugs, medicaments and biological substances
CPT/HCPCS: 36415; 71045; 80048; 80053; 80162; 83735; 83880; 84443; 84484; 85025; 85610; 85730; 86141; 86850; 86900; 86901; 87081; 93005; 93306; 93458; 94761; 96361; 96365; 96375; 99152; 99153; G0378; J2250; J7060

== ENCOUNTER 2023-05-04 11:27 | Inpatient (IN) | payer OTHER ==
[~2023-05-04] VITALS: Ht 170.2 cm; Wt 81.0 kg
[~2023-05-04 11:27] MED LIST changes: +ALBUAER3 IN; +APIX2.5T PO; +CLOP75TA28 PO; +DIGO1TAB48 PO; +DOXY-286 PO; +DOXY100C4 PO; +MELO-335 PO; -MELO1TAB56 PO; +TIOT1AER IN
[2023-05-04 12:45] LABS: Basophils # (auto) 0 10 ^3/uL (0-0.2); Basophils % (auto) 0.1 % (0.0-2.0); Eosinophils # (auto) 0 10 ^3/uL (0-0.8); Eosinophils % (auto) 0.4 % (0.0-7.0); Hematocrit 39.7 % (36.0-46.0); Hemoglobin 13.4 g/dL (12.2-16.2); Lymphocytes # (auto) 1.5 10 ^3/uL (0.4-5.4); Lymphocytes % (auto) 18.9 % (10.0-50.0); Mean Corpuscular Hgb Conc. 33.7 g/dL (32.0-36.0); Monocytes # (auto) 0.4 10 ^3/uL (0-1.3); Neutrophils # (auto) 5.8 10 ^3/uL (1.6-8.6); Neutrophils % (auto) 75.6 % (37.0-80.0); Nucleated Red Blood Cells % 0.1 %; Red Blood Cells 4.32 10^6/uL (4.0-5.20); Red Cell Distribution Width 13.8 % (11.8-14.3); White Blood Cell 7.7 10^3/uL (4.4-10.8)
[2023-05-04 12:59] LABS: Alanine Aminotransferase 109 U/L (7-40); Albumin 4.6 g/dL (3.2-4.8); Alkaline Phosphatase 55 U/L (46-116); Anion Gap 8 (5-15); Aspartate Aminotransferase 78 U/L (13-40); BUN/Creatinine Ratio 28.2 (10.0-20.0); Blood Urea Nitrogen 11 mg/dL (9-23); Calcium 9.8 mg/dL (8.5-10.1); Carbon Dioxide 25 mmol/L (20-30); Chloride 106 mmol/L (98-107); Glucose 104 mg/dL (74-106); Potassium 4.3 mmol/L (3.5-5.1); Sodium 139 mmol/L (136-145)
[2023-05-04 13:00] LABS: Bilirubin, Total 0.9 mg/dL (0.2-1.0); Total Protein 6.7 g/dL (5.7-8.2)
[2023-05-04 14:07] LABS: INR 0.99 (0.9-1.15); Partial Thromboplastin Time 27.7 SEC (24.5-34.5); Prothrombin Time 10.4 sec (9.3-11.8)
[2023-05-04] MEDS ORDERED: MORPHINE SULFATE INJ 2 MG/ml SYRG IV ONE (16:15)
[2023-05-04] MEDS ORDERED: MORPHINE SULFATE INJ 2 MG/ml SYRG IV PRN ×2 (16:15→21:45)
[2023-05-04] MEDS ORDERED: ACETAMINOPHEN 325 MG TAB PO PRN (16:15)
[2023-05-04] MEDS: HYDROcodone-ACET 5/325MG TAB PO PRN (17:13)
[2023-05-04] MEDS: SODIUM CHLOR 0.9% PF (SALINE LOCK) 10ML VIAL/SYR IV SCH (22:05)
[2023-05-04 22:59] VITALS: BP 114/60; PULSE 70; RESP 18; TEMP 98.3; O2SAT 90
[2023-05-04 23:59] VITALS: PULSE 70; RESP 18; O2SAT 94
[2023-05-05] MEDS: HYDROcodone-ACET 5/325MG TAB PO PRN ×4 (00:27→22:17)
[2023-05-05] MEDS ORDERED: FUR20T PO (00:34)
[2023-05-05 05:00] VITALS: BP 96/56; PULSE 75; RESP 18; TEMP 98.7; O2SAT 94
[2023-05-05] MEDS: SODIUM CHLOR 0.9% PF (SALINE LOCK) 10ML VIAL/SYR IV SCH ×3 (05:34→21:32)
[2023-05-05 08:07] LABS: Basophils # (auto) 0 10 ^3/uL (0-0.2); Basophils % (auto) 0.3 % (0.0-2.0); Eosinophils # (auto) 0 10 ^3/uL (0-0.8); Eosinophils % (auto) 0.9 % (0.0-7.0); Hematocrit 36.1 % (36.0-46.0); Hemoglobin 12.3 g/dL (12.2-16.2); Lymphocytes # (auto) 1.2 10 ^3/uL (0.4-5.4); Lymphocytes % (auto) 25.1 % (10.0-50.0); Mean Corpuscular Hemoglobin 31.3 pg (28.0-32.0); Mean Corpuscular Hgb Conc. 34.1 g/dL (32.0-36.0); Mean Corpuscular Volume 91.8 fL (80.0-100.0); Monocytes # (auto) 0.3 10 ^3/uL (0-1.3); Monocytes % (auto) 7.1 % (0.0-12.0); Neutrophils # (auto) 3.3 10 ^3/uL (1.6-8.6); Neutrophils % (auto) 66.6 % (37.0-80.0); Red Blood Cells 3.93 10^6/uL (4.0-5.20); Red Cell Distribution Width 13.8 % (11.8-14.3); White Blood Cell 4.9 10^3/uL (4.4-10.8)
[2023-05-05 08:37] LABS: Alanine Aminotransferase 88 U/L (7-40); Albumin 4.2 g/dL (3.2-4.8); Alkaline Phosphatase 51 U/L (46-116); Anion Gap 7 (5-15); Aspartate Aminotransferase 53 U/L (13-40); BUN/Creatinine Ratio 37.1 (10.0-20.0); Blood Urea Nitrogen 13 mg/dL (9-23); Calcium 9.6 mg/dL (8.5-10.1); Carbon Dioxide 27 mmol/L (20-30); Chloride 105 mmol/L (98-107); Glucose 95 mg/dL (74-106); Potassium 4.3 mmol/L (3.5-5.1); Sodium 139 mmol/L (136-145)
[2023-05-05 08:38] LABS: Bilirubin, Total 1.4 mg/dL (0.2-1.0); Total Protein 6.1 g/dL (5.7-8.2)
[2023-05-05 09:00] VITALS: BP 116/60; PULSE 72; RESP 18; TEMP 97.7; O2SAT 99
[2023-05-05 13:00] VITALS: BP 114/62; PULSE 87; RESP 18; TEMP 98.5; O2SAT 91
[2023-05-05 17:00] VITALS: BP 120/51; PULSE 84; RESP 18; TEMP 98.4; O2SAT 94
[2023-05-05] MEDS ORDERED: TRIAMCINOLONE 40MG/ML 1ML VIAL IM ONE (20:15)
[2023-05-05] MEDS ORDERED: LORazepam 2MG/ML-1ML VIAL IV PRN (21:00)
[2023-05-05] MEDS: APIXABAN 2.5 MG TAB PO SCH (21:32)
[2023-05-05 22:00] VITALS: BP 110/73; PULSE 84; RESP 19; TEMP 98.9; O2SAT 93
[2023-05-05] MEDS ORDERED: methylPREDNISolone ACETATE 80 MG/ML VL IM ONE (22:15)
[2023-05-06 05:00] VITALS: BP 114/57; PULSE 80; RESP 19; TEMP 98.2; O2SAT 92
[2023-05-06] MEDS: SODIUM CHLOR 0.9% PF (SALINE LOCK) 10ML VIAL/SYR IV SCH ×3 (05:12→21:26)
[2023-05-06] MEDS: HYDROcodone-ACET 5/325MG TAB PO PRN ×3 (05:13→20:37)
[2023-05-06 09:00] VITALS: BP 102/57; PULSE 76; RESP 18; TEMP 97.8; O2SAT 92
[2023-05-06] MEDS: APIXABAN 2.5 MG TAB PO SCH ×2 (09:24→21:26)
[2023-05-06] MEDS: TIOTROPIUM OLODATEROL IN SCH (09:25)
[2023-05-06] MEDS ORDERED: ACETAMINOPHEN 325 MG TAB PO PRN (09:30)
[2023-05-06 13:19] VITALS: BP 118/75; PULSE 90; RESP 19; TEMP 98.2; O2SAT 93
[2023-05-06 17:00] VITALS: BP 106/57; PULSE 87; RESP 19; TEMP 98.1; O2SAT 92
[2023-05-06 22:00] VITALS: BP_SYST 102; BP_SYST 108; BP_DIAS 68; BP_DIAS 72; PULSE 88; PULSE 92; RESP 16; TEMP 97.6; TEMP 98.6; O2SAT 92; O2SAT 99
[2023-05-07 05:00] VITALS: BP 108/64; PULSE 66; RESP 16; TEMP 97.3; O2SAT 93
[2023-05-07] MEDS: SODIUM CHLOR 0.9% PF (SALINE LOCK) 10ML VIAL/SYR IV SCH ×4 (06:00→22:00)
[2023-05-07 08:44] LABS: Basophils # (auto) 0 10 ^3/uL (0-0.2); Basophils % (auto) 0.3 % (0.0-2.0); Eosinophils # (auto) 0.1 10 ^3/uL (0-0.8); Eosinophils % (auto) 1.5 % (0.0-7.0); Hematocrit 37.8 % (36.0-46.0); Hemoglobin 12.6 g/dL (12.2-16.2); Lymphocytes # (auto) 1.4 10 ^3/uL (0.4-5.4); Lymphocytes % (auto) 26.6 % (10.0-50.0); Mean Corpuscular Hemoglobin 30.9 pg (28.0-32.0); Mean Corpuscular Hgb Conc. 33.4 g/dL (32.0-36.0); Mean Corpuscular Volume 92.4 fL (80.0-100.0); Monocytes # (auto) 0.4 10 ^3/uL (0-1.3); Monocytes % (auto) 7.7 % (0.0-12.0); Neutrophils # (auto) 3.3 10 ^3/uL (1.6-8.6); Neutrophils % (auto) 63.9 % (37.0-80.0); Red Blood Cells 4.09 10^6/uL (4.0-5.20); Red Cell Distribution Width 13.6 % (11.8-14.3); White Blood Cell 5.2 10^3/uL (4.4-10.8)
[2023-05-07 09:00] VITALS: BP 111/67; PULSE 78; RESP 18; TEMP 97.3; O2SAT 91
[2023-05-07 09:03] LABS: Alanine Aminotransferase 81 U/L (7-40); Albumin 4.4 g/dL (3.2-4.8); Alkaline Phosphatase 54 U/L (46-116); Anion Gap 6 (5-15); Aspartate Aminotransferase 52 U/L (13-40); BUN/Creatinine Ratio 14.7 (10.0-20.0); Blood Urea Nitrogen 5 mg/dL (9-23); Calcium 9.8 mg/dL (8.5-10.1); Carbon Dioxide 27 mmol/L (20-30); Chloride 105 mmol/L (98-107); Glucose 100 mg/dL (74-106); Potassium 3.9 mmol/L (3.5-5.1); Sodium 138 mmol/L (136-145); Total Protein 6.5 g/dL (5.7-8.2)
[2023-05-07] MEDS: APIXABAN 2.5 MG TAB PO SCH ×2 (09:03→19:42)
[2023-05-07] MEDS: TIOTROPIUM OLODATEROL IN SCH (09:03)
[2023-05-07] MEDS: HYDROcodone-ACET 5/325MG TAB PO PRN ×3 (09:03→19:42)
[2023-05-07 09:14] LABS: Creatine Kinase IFCC 1923 U/L (34-145)
[2023-05-07 09:38] LABS: Magnesium 1.8 mg/dL (1.6-2.6)
[2023-05-07 13:12] VITALS: BP 114/65; PULSE 87; RESP 18; TEMP 97.8; O2SAT 93
[2023-05-07 16:07] VITALS: BP 119/67; PULSE 66; RESP 18; TEMP 98.4; O2SAT 93
[2023-05-07 20:00] VITALS: BP 118/66; PULSE 68; RESP 18; TEMP 98.4
[2023-05-07 22:00] VITALS: BP 120/64; PULSE 43; RESP 18; TEMP 98.4; O2SAT 92
[2023-05-08] MEDS: HYDROcodone-ACET 5/325MG TAB PO PRN ×2 (04:55→09:00)
[2023-05-08 05:00] VITALS: BP 113/64; PULSE 77; RESP 20; TEMP 97.6; O2SAT 94
[2023-05-08] MEDS: SODIUM CHLOR 0.9% PF (SALINE LOCK) 10ML VIAL/SYR IV SCH (07:03)
[2023-05-08 08:00] VITALS: PULSE 78; RESP 19; O2SAT 93
[2023-05-08] MEDS: APIXABAN 2.5 MG TAB PO SCH (08:59)
[2023-05-08] MEDS: TIOTROPIUM OLODATEROL IN SCH (09:01)
[2023-05-08 09:14] VITALS: BP 127/67; PULSE 78; RESP 19; TEMP 97.7; O2SAT 93
[2023-05-08 10:24] VITALS: BP 127/67; PULSE 78; RESP 19; TEMP 97.7; O2SAT 93
== END 2023-05-08 12:30 | disposition home health service (06) | DRG 605 ==
LOC: ER 11:27 → EDBD 11:27 → OVERFLOW 16:26 → EAST 22:44 → OBSVTOIN 05-06 12:23
PROVIDERS: ADMIT Student in an Organized Health Care Education/Training Program; ATTEND Student in an Organized Health Care Education/Training Program
DX: S70.01XA Contusion of right hip, initial encounter (principal); G82.20 Paraplegia, unspecified; M62.82 Rhabdomyolysis; E78.5 Hyperlipidemia, unspecified; I10 Essential (primary) hypertension; F17.200 Nicotine dependence, unspecified, uncomplicated; I48.91 Unspecified atrial fibrillation; W18.39XA Other fall on same level, initial encounter; G57.81 Other specified mononeuropathies of right lower limb; J44.9 Chronic obstructive pulmonary disease, unspecified; Z80.1 Family history of malignant neoplasm of trachea, bronchus and lung; Z95.1 Presence of aortocoronary bypass graft; Z88.2 Allergy status to sulfonamides; Z88.8 Allergy status to other drugs, medicaments and biological substances; Z88.0 Allergy status to penicillin; Z82.49 Family history of ischemic heart disease and other diseases of the circulatory system; Z90.710 Acquired absence of both cervix and uterus; Y93.89 Activity, other specified; Y92.89 Other specified places as the place of occurrence of the external cause; Y99.8 Other external cause status
CPT/HCPCS: 36415; 71045; 72146; 72192; 80053; 82550; 83735; 85025; 85610; 85730; 97110; 97116; 97163; 97530; G0378

== ENCOUNTER 2024-11-14 06:22 | Inpatient (IN) | payer OTHER ==
[~2024-11-14] VITALS: Ht 177.8 cm; Wt 87.1 kg
[~2024-11-14 06:22] MED LIST changes: -DOXY-286 PO; -DOXY100C4 PO; +FURO20TA4 PO; -MELO-335 PO; +MELO15TA29 PO
[2024-11-14] MEDS: ONDANSETRON ODT 4 MG TAB PO ONE (06:45)
[2024-11-14] MEDS: ALPRAZolam 0.25 MG TAB PO ONE (06:45)
--- NOTE | 2024-11-14 06:45 | ECG ---
[facility] Test Date: 2024-11-14 Test Time: 06:33:33 Pat Name: KATYA BELL Department: ED Room: [address] [place] [address] Gender: F Blankmaker: : [id number] Requested By: TITO YEN Order Number: [id number] Reading MD: Medardo Rodriguez Measurements Intervals [place] Rate: 79 P: 12 AL: 156 QRS: -65 QRSD: 164 T: 108 QT: 421 QTc: 483 Interpretive Statements Sinus rhythm Probable left atrial enlargement Left bundle branch block Electronically Signed On 11-14-2024 17:32:48 PDT by Medardo Rodriguez Please click the below link to view image of tracing.
[2024-11-14] MEDS: MECLIZINE HCL 25 MG TAB PO ONE (06:52)
--- NOTE | 2024-11-14 06:52 | ED.PDOC ---
HPI (NEURO) HPI Comments 69 y/o F, BIBA, with PMHx of CAD, COPD, AFib, HLD, and HCM presents to the ED for CC of dizziness. EMS reports, patient is coming from home where she c/o dizziness with associated hypertension onset, 0300 this morning (11/14/24). Patient relays, dizziness to have woken her up out of her sleep, feeling as if the room was spinning around her. Patient comments, that symptoms prompted her to check her blood pressure; endorses reading of 180/90mmHg. Patient denies nausea, vomiting, chest pain, or shortness of breath. No other symptoms or modifying factors present at this time. Chief Complaint: Dizziness Time Seen by MD: 06:40 Primary Care Provider: LANCE Garrison Notes: Nurses Notes, Heat Seal Operator Notes, Medications, Allergies Information Source: Patient, Emergency Med Personnel Mode of Arrival: EMS Severity: Moderate Dizziness/Weakness Severity: Unable to do activities Headache Severity: None Timing: Hours Duration: Since onset Prehospital treatment: None Onset: At rest Circumstances: Spontaneous Symptoms: Vertigo Before: Normal After: Normal Mentation History of: None Modifying factors: Nothing Associated Signs and Symptoms: None Past Medical History PAST MEDICAL HISTORY: AFIB, CAD, COPD, High Lipids, HTN Surgical History: , Hernia Repair, Hysterectomy 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 History: No Pertinent 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 OPERATOR History Family History Family History: Reviewed,noncontributory to illness, Family hx of Cancer Social History Smoker: Quit Greater Than 1 Year Alcohol: Denies ETOH Use Drugs: Denies Drug Use Lives In: Home Constitutional: denies: chills, diaphoresis, fatigue, fever, malaise, sweats, weakness, others EENTM: denies: blurred vision, double vision, ear bleeding, ear discharge, ear drainage, ear pain, ear ringing, eye pain, eye redness, hearing loss, mouth pain, mouth swelling, nasal discharge, nose bleeding, nose congestion, nose pain, photophobia, tearing, throat pain, throat swelling, voice changes, others Respiratory: denies: cough, hemoptysis, orthopnea, SOB at rest, shortness of breath, SOB with excertion, stridor, wheezing, others Cardiovascular: denies: chest pain, dizzy spells, diaphoresis, Dyspnea on exertion, edema, irregular heart beat, left arm pain, lightheadedness, palpitations, PND, syncope, others Gastrointestinal: denies: abdomen distended, abdominal pain, blood streaked bowels, constipated, diarrhea, dysphagia, difficulty swallowing, hematemesis, melena, nausea, poor appetite, poor fluid intake, rectal bleeding, rectal pain, vomiting, others Genitourinary: denies: abnormal vagina bleeding, burning, dyspareunia, dysuria, flank pain, frequency, hematuria, incontinence, pain, , vagina d ischarge, urgency, others Neurological: reports: dizziness; denies: fainting, headache, left sided numbness, left sided weakness, numbness, paresthesia, pre-existing deficit, right sided numbness, right sided weakness, seizure, speech problems, tingling, tremors, weakness, others Musculoskeletal: denies: back pain, gout, joint pain, joint swelling, muscle pain, muscle stiffness, neck pain, others Integumetry: denies: bruises, change in color, change in hair/nails, dryness, laceration, lesions, lumps, rash, wounds, others Allergic/Immunocompromised: denies: Difficulty Healing, Frequent Infections, Hives, Itching, others Hematologic/Lymphatic: denies: anemia, blood clots, easy bleeding, easy bruising, swollen glands, others Endocrine: denies: excessive hunger, excessive sweating, excessive thirst, excessive urination, flushing, intolerance to cold, intolerance to heat, unexplained weight gain, unexplained weight loss, others Psychiatric: denies: anxiety, bipolar disorder, depression, hopeless, panic disorder, schizophrenia, sleepless, suicidal, others All Other Systems: Reviewed and Negative Physical Exam General Appearance: No Apparent Distress, Normal HEENT: Normal ENT Inspection, Pharynx Normal Neck: Full Range of Motion, Non-Tender, Normal, Normal Inspection Respiratory: Chest Non-Tender, Lungs Clear, No Accessory Muscle Use, No Respiratory Distress, Normal Breath Sounds Cardiovascular: No Edema, No Murmur, No Gallop, Normal Peripheral Pulses, Reg ular Rate/Rhythm Breast Exam: Deferred Gastrointestinal: No Organomegaly, Non Tender, No Pulsatile Mass, Normal Bowel Sounds, Soft Genitalia: Deferred Pelvic: Deferred Rectal: Deferred Extremities: No calf tenderness, Normal capillary refill, Normal inspection, Normal range of motion, Non-tender, No pedal edema Musculoskeletal : Apperance: Normal Neurologic: Alert, life skills instructor II-XII nml as Tested, No Motor Deficits, Normal Affect, Normal Mood, No Sensory Deficits Cerebellar Function: Normal Reflexes: Normal Skin: Bruises (to right lower leg), Dry, Normal Color, Warm Lymphatic: No Adenopathy EKG EKG : Pulse Rate (adult): 79 [place]: Normal Cardiac Rhythm: NSR Block: LBBB Hypertrophy: None ST: Normal Was a procedure done? Was a procedure done?: No Differential Diagnosis (SZ) Seizure: Hyperventilation, Hypoglycemia, Hypoxemia, Idiopathic, Mass Lesion, N/A General Weakness: Dehydration, Dysrhythmia, Vertigo: central, Vertigo: peripheral X-Ray, Labs, Meds, VS Vital Signs Date Time Temp Pulse Resp B/P (MAP) Pulse Ox O2 Delivery O2 Flow Rate FiO2 11/14/24 06:52 79 11/14/24 06:33 79 11/14/24 06:22 98.0 75 24 168/95 (119) 100 98.0 Lab Test 11/14/24 07:52 11/14/24 06:52 Range/Units Troponin I High Sensitivity Pending 76 *H </=34 ng/L White Blood Count 6.3 4.4-10.8 10^3/uL Red Blood Count 4.10 4.0-5.20 10^6/uL Hemoglobin 12.9 12.2-16.2 g/dL Hematocrit 37.9 36.0-46.0 % Mean Corpuscular Volume 92.4 80.0-100.0 fL Mean Corpuscular Hemoglobin 31.5 28.0-32.0 pg Mean Corpuscular Hemoglobin Concent 34.1 32.0-36.0 g/dL Red Cell Distribution Width 16.4 H 11.8-14.3 % Platelet Count 211 140-450 10^3/uL Mean Platelet Volume 6.5 L 6.9-10.8 fL Neutrophils (%) (Auto) 64.9 37.0-80.0 % Lymphocytes (%) (Auto) 28.2 10.0-50.0 % Monocytes (%) (Auto) 5.9 0.0-12.0 % Eosinophils (%) (Auto) 0.6 0.0-7.0 % Basophils (%) (Auto) 0.4 0.0-2.0 % Neutrophils # (Auto) 4.1 1.6-8.6 10 ^3/uL Lymphocytes # (Auto) 1.8 0.4-5.4 10 ^3/uL Monocytes # (Auto) 0.4 0-1.3 10 ^3/uL Eosinophils # (Auto) 0 0-0.8 10 ^3/uL Basophils # (Auto) 0 0-0.2 10 ^3/uL Nucleated Red Blood Cells 0.1 % Sodium Level 135 L 136-145 mmol/L Potassium Level 4.1 3.5-5.1 mmol/L Chloride Level 102 98-107 mmol/L Carbon Dioxide Level 25 20-31 mmol/L Anion Gap 8 5-15 Blood Urea Nitrogen 18 9-23 mg/dL Creatinine 0.56 0.550-1.02 mg/dL Glomerular Filtration Rate Calc 98 >90 mL/min BUN/Creatinine Ratio 32.1 H 10.0-20.0 Serum Glucose 84 74-106 mg/dL Calcium Level 8.6 L 8.7-10.4 mg/dL Current Medications Medications (Trade) Dose Ordered Sig/Clifton Route Start Time Stop Time Status Last Admin Meclizine HCl (Antivert Tablet) 25 mg ONCE ONCE PO 11/14/24 06:45 11/14/24 06:46 DC 11/14/24 06:52 Time of 1ST Reevaluation: 07:10 Reevaluation 1ST: Unchanged Time of 2ND Reevaluation: 08:20 Reevaluation 2ND: Improved Patient Education/Counseling: Diagnosis, Treatment, Prognosis, Need For Follow Up Family Education/Counseling: No Family Present Comments pt was waken from sleep by something which she could not describe, but she immediately felt her BP was elevated and symptoms of vertigo. on exam, she does not have neurologic deficits. she has a history of CAD, HCM. her trop is elevated., she has not had any arrhythmias captured here. pt likely had a cardiac event which woke her. she will be admitted for further evaluation and treatments Additional Information Previous visits reviewed: 05/02/19 DX:AFIB RVR SPD COPD Hx CHF The following tests were ordered, and results were reviewed by me: TROPONIN X3, CBC, BMP, EKG X2, HEAD CT, CXR Additional Information was gathered from interviewing the following independent historians: EMS I reviewed and agreed with the following test results read by other providers: HEAD CT, CXR I discussed treatment and results with medical personnel and: patient Comprehensive systems review obtained and negative except for what is stated in the HPI. Departure 1 Departure Time of Disposition: 08:18 Impression: Primary Impression: NSTEMI (non-ST elevated myocardial infarction) Additional Impression: Vertigo Disposition: 09 ADMITTED INPATIENT Admit to: Tele Condition: Serious Discharged With: Self Critical Care Note Critical Care Time?: Yes (55 min-critical care time only) Critical care comment: Due to concerns for patients condition deteriorating, the care required my highest level of attention and readiness to intervene. I assessed the patient, reviewed the medical records, ordered the appropriate tests and treatments, then reassessed for results and responsiveness. I communicated with medical personnel and consultants and formulated a plan of care. Total critical care time excludes any procedures Stability Stability form required: No Heart Score Heart Score: Heart Score Response (Comments) Value History Slightly Suspicious 0 EKG Normal 0 Age >65 2 Risk Factors 1 or 2 risk factors 1 Troponin 1-2 x's Normal limit 1 Total 4 I personally scribed for TITO YEN MD ([email or web address]) on 11/14/24 at 06:52. Electronically submitted by Munira Blake ([email or web address]). I personally scribed for TITO YEN MD ([email or web address]) on 11/14/24 at 07:10. Electronically submitted by Munira Blake ([email or web address]). TITO YEN MD Nov 14, 2024 06:52
[2024-11-14 06:58] LABS: Basophils # (auto) 0 10 ^3/uL (0-0.2); Basophils % (auto) 0.4 % (0.0-2.0); Eosinophils # (auto) 0 10 ^3/uL (0-0.8); Eosinophils % (auto) 0.6 % (0.0-7.0); Hematocrit 37.9 % (36.0-46.0); Hemoglobin 12.9 g/dL (12.2-16.2); Lymphocytes # (auto) 1.8 10 ^3/uL (0.4-5.4); Lymphocytes % (auto) 28.2 % (10.0-50.0); Mean Corpuscular Hemoglobin 31.5 pg (28.0-32.0); Mean Corpuscular Hgb Conc. 34.1 g/dL (32.0-36.0); Mean Corpuscular Volume 92.4 fL (80.0-100.0); Monocytes # (auto) 0.4 10 ^3/uL (0-1.3); Monocytes % (auto) 5.9 % (0.0-12.0); Neutrophils # (auto) 4.1 10 ^3/uL (1.6-8.6); Neutrophils % (auto) 64.9 % (37.0-80.0); Nucleated Red Blood Cells % 0.1 %; Platelet Count (auto) 211 10^3/uL (140-450); Red Cell Distribution Width 16.4 % (11.8-14.3); White Blood Cell 6.3 10^3/uL (4.4-10.8)
[2024-11-14 07:19] LABS: Chloride 102 mmol/L (98-107); Potassium 4.1 mmol/L (3.5-5.1)
[2024-11-14 07:20] LABS: Anion Gap 8 (5-15); Carbon Dioxide 25 mmol/L (20-31)
[2024-11-14 07:25] LABS: BUN/Creatinine Ratio 32.1 (10.0-20.0); Blood Urea Nitrogen 18 mg/dL (9-23); Glucose 84 mg/dL (74-106)
[2024-11-14 07:29] LABS: Calcium 8.6 mg/dL (8.7-10.4); Sodium 135 mmol/L (136-145)
--- NOTE | 2024-11-14 07:58 | DVH ---
XY CHEST PORTABLE, HISTORY: dizziness COMPARISON: XY CHEST PORTABLE on DOS: 05/04/23, CHEST PORTABLE on DOS: 05/02/19 XY CHEST PORTABLE on DOS: 05/04/23, CHEST PORTABLE on DOS: 05/02/19 TECHNICAL DATA: 1 view of the chest was obtained. FINDINGS: Lines and tubes: None Cardiomediastinal silhouette: normal Pulmonary vasculature: normal Lung expansion: normal Lung airspace: normal Lung interstitium: normal Pleura: normal Pneumothorax: no Bones: Unremarkable Other: no IMPRESSION: No acute intrathoracic abnormality.
--- NOTE | 2024-11-14 08:20 | DVH ---
CT HEAD WITHOUT CONTRAST INDICATION: dizziness EXAM DATE: 11/14/2024 07:25 AM COMPARISON: None RADIATION DOSE: CTDIvol: 51.82 mGy, DLP: 830.87 mGy*cm PROCEDURE: CT scans of the head were obtained from the vertex to the skull base. Sagittal and coronal reconstructions were provided. All CT scans at this medical facility are performed using dose modulation techniques as appropriate t o a performed exam including the following: Automated exposure control was utilized; adjustment of th e MA and/or KV according to patient size; and use of iterative reconstruction technique. FINDINGS: There is sulcal and ventricular prominence. The brainshows normal morphology and [place]-whi te matter differentiation, without intracranial hemorrhage, extra-axial fluid collection, mass effect or acute large vessel infarct. The ventricles are normal in size. The basal cisterns are patent. The skull and visible facial bones are intact. The paranasal sinuses, mastoid air cells and middle ear c avities are well-aerated. The soft tissues of the scalp are unremarkable. IMPRESSION: No acute intracranial abnormality.
[2024-11-14] MEDS: ASPirin 81 mg TAB PO ONE (08:38)
[2024-11-14 09:33] LABS: Urine Bacteria None Seen /hpf (None Seen)
[2024-11-14 09:57] LABS: Urine Blood Negative /uL (Negative); Urine Clarity Clear (Clear); Urine Protein, UAD Negative (Negative); Urine Specific Gravity 1.009 (1.001-1.035); Urine Squamous Epithelial Cell FEW /hpf (<5); Urine Urobilinogen Normal (Negative); Urine WBC 6 /HPF (0-5)
[2024-11-14 09:59] LABS: Urine Color Straw (Yellow)
[2024-11-14] MEDS ORDERED: ONDANSETRON HCL 4 MG/2 ML VIAL IV PRN (12:30)
[2024-11-14] MEDS ORDERED: NITROGLYCERIN 0.4 MG SL TAB SL PRN (12:30)
[2024-11-14] MEDS ORDERED: IPRATROPIUM BROM 0.5 MG/2.5ML INH SOL NEB PRN (12:30)
[2024-11-14] MEDS ORDERED: MORPHINE SULFATE INJ 2 MG/ml SYRG IV PRN ×2 (12:30)
--- NOTE | 2024-11-14 12:40 | DVHHP2 ---
History of Present Illness Reason for Visit: Dizziness History of Present Illness 69 y/o F, BIBA, with PMHx of CAD, COPD, AFib, HLD, and HCM presents to the ED for CC of dizziness. EMS reports, patient is coming from home where she c/o dizziness with associated hypertension onset, 0300 this morning (11/14/24). Patient relays, dizziness to have woken her up out of her sleep, feeling as if the room was spinning around her. Patient comments, that symptoms prompted her to check her blood pressure; endorses reading of 180/90mmHg. Patient denies nausea, vomiting, chest pain, or shortness of breath. No other symptoms or modifying factors present at this time. Past Medical History AFIB, CAD, COPD, High Lipids, HTN Past Surgical History , Hernia Repair, Hysterectomy Family History: Hyperlipidemia, Hypertension Smoke: No ALCOHOL: rare Lives: with Family Review of Systems Review of Systems No complaints of fevers chills or sweats. No headache. No shortness a breath. No recent travel. Other review of systems reviewed normal. Allergies: Coded Allergies: Amoxicillin (Verified Allergy, Unknown, 05/04/23) Ceftriaxone (Verified Allergy, Unknown, 05/04/23) Loratadine (Verified Allergy, Unknown, 05/04/23) Meperidine (Verified Allergy, Unknown, 01/13/19) Sulfa Antibiotics (Verified Allergy, Unknown, 05/04/23) Medications Current Medications Medications Dose Ordered Sig/Clifton Route Start Time Stop Time Status Last Admin Dose Admin Nitroglycerin 0.4 mg Q5MINP PRN SL 11/14/24 12:30 UNV Morphine Sulfate 2 mg Q30M PRN IV 11/14/24 12:30 UNV Aspirin 81 mg DAILY PO 11/15/24 10:00 UNV Enoxaparin Sodium 80 mg Q12HR SC 11/14/24 22:00 UNV Atorvastatin Calcium 40 mg HS PO 11/14/24 22:00 UNV Famotidine 20 mg DAILY PO 11/15/24 10:00 UNV Metoprolol Tartrate 25 mg BID PO 11/14/24 22:00 UNV Ondansetron HCl 4 mg Q4HPRN PRN IV 11/14/24 12:30 UNV Morphine Sulfate 2 mg Q4HPRN PRN IV 11/14/24 12:30 UNV Acetaminophen 650 mg Q4HP PRN PO 11/14/24 12:30 UNV Albuterol 90 mcg TID IN 11/14/24 14:00 UNV Ipratropium [place] 0.5 mg Q4HPRN PRN NEB 11/14/24 12:30 UNV Exam Vital Signs Vital Signs Date Time Temp Pulse Resp B/P (MAP) Pulse Ox O2 Delivery O2 Flow Rate FiO2 11/14/24 11:00 78 24 126/64 (84) 91 11/14/24 09:36 98.0 98.0 11/14/24 09:00 Room Air* 0 21 Exam Alert awake oriented x3. HEENT neck supple no JVD pupils equal round react to light. Heart regular rate and rhythm S1 plus S2 no murmurs gallops or rubs. Lungs fair air movement chest tube will expansion no rales wheezes. Abdomen is soft nontender nondistended positive bowel sounds. Extremities no edema no adenoma with a positive distal pedal pulses Labs/Xrays Labs Test 11/14/24 09:58 11/14/24 09:32 11/14/24 06:52 Range/Units Troponin I High Sensitivity 89 *H </=34 ng/L Urine Color Straw Yellow Urine Clarity Clear Clear Urine pH 7.0 5.0-9.0 Urine Specific [place] 1.009 1.001-1.035 Urine Protein Negative Negative Urine Ketones Negative Negative Urine Blood Negative Negative /uL Urine Nitrite Negative Negative Urine Bilirubin Negative Negative Urine Urobilinogen Normal Negative mg/dL Urine Leukocyte Esterase 2+ Negative /uL Urine RBC 1 0 - 4 /hpf Urine Microscopic WBC 6 H 0-5 /HPF Urine Squamous Epithelial Cells Few <5 /hpf Urine Bacteria None seen None Seen /hpf Urine Glucose Normal Normal mg/dL White Blood Count 6.3 4.4-10.8 10^3/uL Red Blood Count 4.10 4.0-5.20 10^6/uL Hemoglobin 12.9 12.2-16.2 g/dL Hematocrit 37.9 36.0-46.0 % Mean Corpuscular Volume 92.4 80.0-100.0 fL Mean Corpuscular Hemoglobin 31.5 28.0-32.0 pg Mean Corpuscular Hemoglobin Concent 34.1 32.0-36.0 g/dL Red Cell Distribution Width 16.4 H 11.8-14.3 % Platelet Count 211 140-450 10^3/uL Mean Platelet Volume 6.5 L 6.9-10.8 fL Neutrophils (%) (Auto) 64.9 37.0-80.0 % Lymphocytes (%) (Auto) 28.2 10.0-50.0 % Monocytes (%) (Auto) 5.9 0.0-12.0 % Eosinophils (%) (Auto) 0.6 0.0-7.0 % Basophils (%) (Auto) 0.4 0.0-2.0 % Neutrophils # (Auto) 4.1 1.6-8.6 10 ^3/uL Lymphocytes # (Auto) 1.8 0.4-5.4 10 ^3/uL Monocytes # (Auto) 0.4 0-1.3 10 ^3/uL Eosinophils # (Auto) 0 0-0.8 10 ^3/uL Basophils # (Auto) 0 0-0.2 10 ^3/uL Nucleated Red Blood Cells 0.1 % Sodium Level 135 L 136-145 mmol/L Potassium Level 4.1 3.5-5.1 mmol/L Chloride Level 102 98-107 mmol/L Carbon Dioxide Level 25 20-31 mmol/L Anion Gap 8 5-15 Blood Urea Nitrogen 18 9-23 mg/dL Creatinine 0.56 0.550-1.02 mg/dL Glomerular Filtration Rate Calc 98 >90 mL/min BUN/Creatinine Ratio 32.1 H 10.0-20.0 Serum Glucose 84 74-106 mg/dL Calcium Level 8.6 L 8.7-10.4 mg/dL Assessment/Plan Assessment/Plan Dizziness Elevated troponin Malignant hypertension Atherosclerotic coronary artery Disease We will admit to telemetry floor. Patient is asymptomatic at present. MRI of the brain for evaluation of dizziness. 2D echocardiogram and cardiac evaluation for elevated troponins. Serial troponin enzymes. Aspirin statin and Lovenox treatment for now. Beta brook to control blood pressure. Otherwise resume other home medications. Continue rest of supportive care and treatment. Follow the labs. Further clinical management per clinical course and pending evaluations studies as well as recommendations from the consultants. Discussed with the ER physician regarding care plan. Plan discussed with: Other My Orders Orders - MIKE BARCENAS MD Procedure Category Date Status Time Admit ADMIT 11/14/24 Transmitted 12:23 * Cardiology Consult CONS 11/14/24 Transmitted 12:23 Cardiac DIET 11/14/24 Transmitted Diet-2gna,Lofat,Lochol Lunch Echo 2d Mode Cardiac US 11/14/24 Logged DOP 12:23 Troponin-I Hs LAB 11/14/24 Logged 12:23 Nitroglycerin PHA 11/14/24 Logged Sublingual (Ntrostat 12:30 Morphine Sulfate PHA 11/14/24 Logged Injection 12:30 Stat Ekg For Chest TRUNG 11/14/24 In Process Pain 12:23 Notify Md Of Changes TRUNG 11/14/24 In Process From Base 12:23 Serging Machine Operator For [facility] 11/14/24 In Process 24 Hours 12:23 Emergency Dysrhythmia [facility] 11/14/24 In Process Protocol 12:23 Rhythm Strips Once [facility] 11/14/24 In Process Every Shift 12:23 Oxygen By Nasal RT 11/14/24 Transmitted Cannula 12:23 Troponin-I Hs LAB 11/14/24 Logged 15:00 Troponin-I Hs LAB 11/14/24 Logged 23:00 Troponin-I Hs LAB 11/15/24 Verified 07:00 Aspirin Enteric PHA 11/15/24 Logged Coated Tablet 10:00 Enoxaparin Sodium PHA 11/14/24 Logged (Lovenox) 22:00 Atorvastatin (Lipitor) PHA 11/14/24 Logged 22:00 Famotidine Tablet PHA 11/15/24 Logged (Pepcid Tablet) 10:00 Metoprolol Tartrate PHA 11/14/24 Logged Tablet (Lopressor Ta 22:00 Ondansetron Hcl PHA 11/14/24 Logged (Zofran) 12:30 Morphine Sulfate PHA 11/14/24 Logged Injection 12:30 Acetaminophen Tablet PHA 11/14/24 Logged (Tylenol Tablet) 12:30 Basic Metabolic Panel LAB 11/15/24 Verified 04:00 Complete Blood Count LAB 11/15/24 Verified 04:00 PTPTT LAB 11/15/24 Verified 04:00 Electrocardigram EKG 11/15/24 Logged 04:00 Albuterol Inhaler PHA 11/14/24 Logged (Ventolin Hfa) 14:00 Ipratropium Medneb PHA 11/14/24 Logged (Atrovent Medneb) 12:30 Enoxaparin Sodium PHA 11/14/24 Logged (Lovenox) 12:45 Brain Head Wo Contrast MRI 11/14/24 Logged 12:34 Orthostatic Vital ORDERS 11/14/24 Transmitted Signs 12:34 Orthostatic Vital ED NURSING 11/14/24 Transmitted Signs MIKE BARCENAS MD Nov 14, 2024 12:40
[2024-11-14 12:56] VITALS: BP 126/64; PULSE 86; RESP 16; O2SAT 92
[2024-11-14] MEDS ORDERED: ALBUTEROL SULF 2.5 MG/0.5ML(0.5%) NEB SOLN NEB PRN (13:00)
[2024-11-14] MEDS: ENOXAPARIN SOD 80 MG/0.8ML SYRINGE SC ONE (13:10)
[2024-11-14] MEDS ORDERED: ALBUTEROL SULF HFA 90MCG INH 200DOSE IN SCH (14:00)
--- NOTE | 2024-11-14 15:19 | DVH ---
MRI BRAIN HEAD WO CONTRAST INDICATION: dizziness EXAM DATE: 11/14/2024 02:38 PM COMPARISON: None PROCEDURE: Using a 1.5 Janette scanner, multisequence multiplanar imaging of the brain was obtained. FINDINGS: The brainshows normal morphology and signal characteristics. No abnormal T2 hyperintensity, diffusion restriction, or susceptibility hypointensity is present. The ventricles are normal in size . The midline structures are intact. The major intracranial flow voids are present. The aerated space s are normal. The orbital contents and extracranial soft tissues appear normal. IMPRESSION: No acute abnormal MRI findings of the brain.
--- NOTE | 2024-11-14 18:06 | DVHSR ---
APPROVED REPORT EXAM: LIMITED Two-dimensional and M-mode echocardiogram with Doppler and color Doppler. Blood Pressure: 126/64 mmHg INDICATION Elevated Troponins Surgery/Intervention CABG: RISK FACTORS Height: 5' 9", Weight: 170 DIMENSIONS LVDd5.4 (3.8-5.7cm)LA (2D)4.6 (1.9-4.0cm)Aortic Root3.6 (2.0-3.7cm) LVDs3.7 (2.5-4.0cm)LA (MM) (1.9-4.0cm)Aortic Cusp Exc1.9 (1.5-2.0cm) EF (%) 58.0 (55-70%)Rt. Atrium4.4 (1.9-4.0cm)Asc. Aorta cm IVSd1.1 (0.7-1.1cm)RV (D) (1.8-2.4cm) PWd1.1 (0.7-1.1cm) Mitral Valve MitralMitral Stenosis E wave0.70m/sMV Mean GR.mmHg A wave1.10m/sMV Peak GR.mmHg E/A ratio0.62D MVAcm2 Aortic Valve Aortic ValveAortic Stenosis V10.70m/Kimi Mean GR.3mmHg V21.20m/Kimi Peak GR.6mmHg LVOT Diameter2.5 (1.8-2.4cm)Doppler AVA2.86cm2 Pulmonic Valve V21.50m/s Tricuspid Valve TR Velocity3.00m/s [id number] Other Information Quality : Technically LimitedRhythm : Technically limited study due to body habitus. Conclusion Sinus rhythm. Left atrial enlargement. Concentric LVH. Mild aortic root enlargement. Mild mitral annular calcification. Left ventricular systolic performance is diminished there is anterior hypokinesis anteroseptal hypoki nesis is severe. EF of about 40%. Right ventricular function appears normal. Mid and distal anteri or wall appeared to be akinetic, anteroseptal and mid septal angela are akinetic. Dyskinetic at the p roximal and mid septal segment. Mild mitral and tricuspid regurgitation. No pericardial effusion masses or vegetations.
--- NOTE | 2024-11-14 18:14 | DVHINCON2 ---
Date of service: Nov 14, 2024 Referring Physician Aaron Reason for Consultation Elevated troponin History of Present Illness This is a 69 year old female with a PMH of CAD, COPD, AFib, HLD, and HCM brought in by ambulance for complaints of dizziness. The patient reports associated elevated blood pressure onset, 0300 this morning (11/14/24). Patient relays that her dizziness was significant enough to wake her up out of her sleep, feeling as if the room was spinning around her. Patient notes that the symptoms prompted her to check her blood pressure and was 180/90mmHg. EKG is NSR at 79. CBC is unremarkable. TROP 76, 80, 89, 91. Chest x-ray shows NAD. CT head showed no acute intracranial abnormality. Patient was admitted to the hospital. I am asked to consult on this patient. Family History: Cardiovascular disease G8 FATHER, Onset:Unknown FH: brain tumor G8 SISTER, Onset:Unknown FH: lung cancer MATERNAL GRANDMOTHER, Onset:Unknown Allergies: Coded Allergies: Amoxicillin (Verified Allergy, Unknown, 05/04/23) Ceftriaxone (Verified Allergy, Unknown, 05/04/23) Loratadine (Verified Allergy, Unknown, 05/04/23) Meperidine (Verified Allergy, Unknown, 01/13/19) Sulfa Antibiotics (Verified Allergy, Unknown, 05/04/23) Home Meds Active Scripts Albuterol Sulfate (VENTOLIN MDI) 90 Mcg Ih, 90 MCG IN Q6HP PRN, #1 INH Prov:MARK ANDRES MD 05/05/19 Digoxin (Lanoxin) 125 Mcg Tab, 0.25 MG PO DAILY for 30 Days, #60 TAB Prov:MARK ANDRES MD 05/05/19 Clopidogrel Bisulfate (Plavix) 75 Mg Tab, 75 MG PO DAILY for 30 Days, #30 TAB Prov:MARK ANDRES MD 05/05/19 Reported Medications Furosemide (Furosemide) 20 Mg Tab, 1 TAB PO BID 05/05/23 Apixaban Base (ELIQUIS) 2.5 Mg Tab, 2.5 MG PO BID, TAB 05/02/19 Tiotropium [place]-Olodaterol (Stiolto Respimat 2.5-2.5 Mcg/Act) 1 Aer Aer, 2 AER IN BID, AER 01/13/19 Meloxicam (Meloxicam) 15 Mg Tab, 15 MG PO DAILY, TAB 12/30/14 Current Medications Current Medications Medications (Trade) Dose Ordered Sig/Clifton Route PRN Reason Start Time Stop Time Status Last Admin Nitroglycerin (Ntrostat Sublingual) 0.4 mg Q5MINP PRN SL FOR CHEST PAIN 11/14/24 12:30 Morphine Sulfate 2 mg Q30M PRN IV FOR CHEST PAIN 11/14/24 12:30 Aspirin (Ecotrin Enteric Coated Tablet) 81 mg DAILY PO 11/15/24 10:00 Enoxaparin Sodium (Lovenox) 80 mg Q12HR SC 11/14/24 22:00 Atorvastatin Calcium (Lipitor) 40 mg HS PO 11/14/24 22:00 Famotidine (Pepcid Tablet) 20 mg DAILY PO 11/15/24 10:00 Metoprolol Tartrate (Lopressor Tablet) 25 mg BID PO 11/14/24 22:00 Ondansetron HCl (Zofran) 4 mg Q4HPRN PRN IV NAUSEA / VOMITING 11/14/24 12:30 Morphine Sulfate 2 mg Q4HPRN PRN IV SEVERE PAIN (7-10 PAIN SCALE) 11/14/24 12:30 Acetaminophen (Tylenol Tablet) 650 mg Q4HP PRN PO MODERATE PAIN (4-6 PAIN SCALE) 11/14/24 12:30 Albuterol (Ventolin Hfa) 90 mcg TID IN 11/14/24 14:00 11/14/24 12:55 DC Ipratropium [place] (Atrovent Medneb) 0.5 mg Q4HPRN PRN NEB SHORTNESS OF BREATH 11/14/24 12:30 Albuterol (Ventolin Medneb) 2.5 mg Q4HPRN PRN NEB SHORTNESS OF BREATH 11/14/24 13:00 Review of Systems Constitutional: denies: chills, diaphoresis, fatigue, fever, malaise, sweats, weakness, others EENTM: denies: blurred vision, double vision, ear bleeding, ear discharge, ear drainage, ear pain, ear ringing, eye pain, eye redness, hearing loss, mouth pain, mouth swelling, nasal discharge, nose bleeding, nose congestion, nose pain, photophobia, tearing, throat pain, throat swelling, voice changes, others Respiratory: denies: cough, hemoptysis, orthopnea, SOB at rest, shortness of breath, SOB with excertion, stridor, wheezing, others Cardiovascular: denies: chest pain, dizzy spells, diaphoresis, Dyspnea on exertion, edema, irregular heart beat, left arm pain, lightheadedness, palpitations, PND, syncope, others Gastrointestinal: denies: abdomen distended, abdominal pain, blood streaked bowels, constipated, diarrhea, dysphagia, difficulty swallowing, hematemesis, melena, nausea, poor appetite, poor fluid intake, rectal bleeding, rectal pain, vomiting, others Genitourinary: denies: abnormal vagina bleeding, burning, dyspareunia, dysuria, flank pain, frequency, hematuria, incontinence, pain, , vagina discharge, urgency, others Neurological: reports: dizziness; denies: fainting, headache, left sided numbness, left sided weakness, numbness, paresthesia, pre-existing deficit, right sided numbness, right sided weakness, seizure, speech problems, tingling, tremors, weakness, others Musculoskeletal: denies: back pain, gout, joint pain, joint swelling, muscle pain, muscle stiffness, neck pain, others Integumetry: denies: bruises, change in color, change in hair/nails, dryness, laceration, lesions, lumps, rash, wounds, others Allergic/Immunocompromised: denies: Difficulty Healing, Frequent Infections, Hives, Itching, others Hematologic/Lymphatic: denies: anemia, blood clots, easy bleeding, easy bruising, swollen glands, others Endocrine: denies: excessive hunger, excessive sweating, excessive thirst, excessive urination, flushing, intolerance to cold, intolerance to heat, unexplained weight gain, unexplained weight loss, others Psychiatric: denies: anxiety, bipolar disorder, depression, hopeless, panic disorder, schizophrenia, sleepless, suicidal, others All Other Systems: Reviewed and Negative Vital Signs Vital Signs Date Time Temp Pulse Resp B/P (MAP) Pulse Ox O2 Delivery O2 Flow Rate FiO2 11/14/24 12:56 86 16 126/64 92 11/14/24 09:36 98.0 98.0 11/14/24 09:00 Room Air* 0 21 Physical Exam GENERAL: Alert and oriented x 3. No acute distress. EYES: PERRL, EOMI. Anicteric. HENT: Moist mucous membranes. LUNGS: Clear to auscultation bilaterally. CARDIOVASCULAR: Regular rate and rhythm. ABDOMEN: Soft, nontender and nondistended. EXTREMITIES: No edema. NEUROLOGIC: No focal neurological deficits. SKIN: Warm, dry. Bruising to RLE. Labs/Diagnostic Data Labs Test 11/14/24 13:06 11/14/24 09:32 11/14/24 06:52 Range/Units Troponin I High Sensitivity 91 *H </=34 ng/L Urine Color Straw Yellow Urine Clarity Clear Clear Urine pH 7.0 5.0-9.0 Urine Specific [place] 1.009 1.001-1.035 Urine Protein Negative Negative Urine Ketones Negative Negative Urine Blood Negative Negative /uL Urine Nitrite Negative Negative Urine Bilirubin Negative Negative Urine Urobilinogen Normal Negative mg/dL Urine Leukocyte Esterase 2+ Negative /uL Urine RBC 1 0 - 4 /hpf Urine Microscopic WBC 6 H 0-5 /HPF Urine Squamous Epithelial Cells Few <5 /hpf Urine Bacteria None seen None Seen /hpf Urine Glucose Normal Normal mg/dL White Blood Count 6.3 4.4-10.8 10^3/uL Red Blood Count 4.10 4.0-5.20 10^6/uL Hemoglobin 12.9 12.2-16.2 g/dL Hematocrit 37.9 36.0-46.0 % Mean Corpuscular Volume 92.4 80.0-100.0 fL Mean Corpuscular Hemoglobin 31.5 28.0-32.0 pg Mean Corpuscular Hemoglobin Concent 34.1 32.0-36.0 g/dL Red Cell Distribution Width 16.4 H 11.8-14.3 % Platelet Count 211 140-450 10^3/uL Mean Platelet Volume 6.5 L 6.9-10.8 fL Neutrophils (%) (Auto) 64.9 37.0-80.0 % Lymphocytes (%) (Auto) 28.2 10.0-50.0 % Monocytes (%) (Auto) 5.9 0.0-12.0 % Eosinophils (%) (Auto) 0.6 0.0-7.0 % Basophils (%) (Auto) 0.4 0.0-2.0 % Neutrophils # (Auto) 4.1 1.6-8.6 10 ^3/uL Lymphocytes # (Auto) 1.8 0.4-5.4 10 ^3/uL Monocytes # (Auto) 0.4 0-1.3 10 ^3/uL Eosinophils # (Auto) 0 0-0.8 10 ^3/uL Basophils # (Auto) 0 0-0.2 10 ^3/uL Nucleated Red Blood Cells 0.1 % Sodium Level 135 L 136-145 mmol/L Potassium Level 4.1 3.5-5.1 mmol/L Chloride Level 102 98-107 mmol/L Carbon Dioxide Level 25 20-31 mmol/L Anion Gap 8 5-15 Blood Urea Nitrogen 18 9-23 mg/dL Creatinine 0.56 0.550-1.02 mg/dL Glomerular Filtration Rate Calc 98 >90 mL/min BUN/Creatinine Ratio 32.1 H 10.0-20.0 Serum Glucose 84 74-106 mg/dL Calcium Level 8.6 L 8.7-10.4 mg/dL Assessment Dizziness. Elevated troponin. Malignant hypertension. Atherosclerotic coronary artery disease. Plan/Recommendation I agree with your ongoing assessment and care of plan. Telemetry reviewed. Echocardiogram. Aspirin, Lipitor, Metoprolol. DVT prophylactics. Nitro SL. Morphine for pain management. Additional plan as per the hospital course. A total of 45 minutes was spent reviewing the patient record, examining the patient, making a diagnostic and therapeutic plan, discussing this plan with medical personnel, following up on diagnostic studies and following the patient for clinical stability excluding any and all procedures. At least 50% of this time was spent in direct, [id number] contact. Plan discussed with: Patient KAVITA LUCAS MD Nov 14, 2024 13:37
[2024-11-14 18:40] VITALS: O2SAT 96
[2024-11-14 18:43] VITALS: BP 145/89; PULSE 86; RESP 18; O2SAT 94
[2024-11-14 18:46] VITALS: PULSE 86; RESP 18; O2SAT 99
[2024-11-14] MEDS ORDERED: FOLI-119 PO (19:38)
[2024-11-14] MEDS ORDERED: METH2.5T62 PO (19:38)
[2024-11-14] MEDS ORDERED: APIX2.5T PO (19:38)
[2024-11-14] MEDS ORDERED: FLUT1AER3 INH (19:38)
[2024-11-14] MEDS ORDERED: HYDR1TAB97 PO (19:38)
[2024-11-14] MEDS ORDERED: PRED10TA PO (19:38)
[2024-11-14 20:00] VITALS: PULSE 78; PULSE 86; RESP 18
[2024-11-14 21:00] VITALS: BP_SYST 124; BP_SYST 133; BP_SYST 139; BP_DIAS 73; BP_DIAS 77; PULSE 107; PULSE 92; PULSE 94; RESP 20; RESP 22; TEMP 97.6; O2SAT 96; O2SAT 97; O2SAT 99
[2024-11-14] MEDS: METOPROLOL TARTRATE 25 MG TAB PO SCH (22:00)
[2024-11-14] MEDS: ATORVASTATIN 20 MG TAB PO SCH (22:39)
[2024-11-14] MEDS: ACETAMINOPHEN 325 MG TAB PO PRN (22:41)
[2024-11-14] MEDS: ENOXAPARIN SOD 80 MG/0.8ML SYRINGE SC SCH (22:46)
[2024-11-15] VITALS (10 sets, daily range): BP systolic 114–133; BP diastolic 67–76; PULSE 77–105; RESP 17–20; TEMP 97.4–98.6; O2SAT 82–98
[2024-11-15] MEDS ORDERED: FLEC1TAB PO (08:05)
[2024-11-15 08:14] LABS: Basophils # (auto) 0 10 ^3/uL (0-0.2); Basophils % (auto) 0.2 % (0.0-2.0); Eosinophils # (auto) 0 10 ^3/uL (0-0.8); Eosinophils % (auto) 0.5 % (0.0-7.0); Hematocrit 38.8 % (36.0-46.0); Hemoglobin 13.3 g/dL (12.2-16.2); Lymphocytes # (auto) 2.1 10 ^3/uL (0.4-5.4); Lymphocytes % (auto) 33.3 % (10.0-50.0); Mean Corpuscular Hemoglobin 31.7 pg (28.0-32.0); Mean Corpuscular Hgb Conc. 34.2 g/dL (32.0-36.0); Mean Corpuscular Volume 92.8 fL (80.0-100.0); Monocytes # (auto) 0.3 10 ^3/uL (0-1.3); Monocytes % (auto) 5.4 % (0.0-12.0); Neutrophils # (auto) 3.8 10 ^3/uL (1.6-8.6); Neutrophils % (auto) 60.6 % (37.0-80.0); Nucleated Red Blood Cells % 0.1 %; Platelet Count (auto) 199 10^3/uL (140-450); Red Blood Cells 4.18 10^6/uL (4.0-5.20); Red Cell Distribution Width 16.4 % (11.8-14.3); White Blood Cell 6.2 10^3/uL (4.4-10.8)
[2024-11-15] MEDS: ASPirin-EC 81 mg tab PO SCH (08:14)
[2024-11-15 08:15] LABS: Chloride 106 mmol/L (98-107); Sodium 139 mmol/L (136-145)
[2024-11-15] MEDS: FAMOTIDINE 20 MG TAB PO SCH (08:15)
[2024-11-15 08:16] LABS: Anion Gap 10 (5-15); Calcium 9.4 mg/dL (8.7-10.4); Carbon Dioxide 23 mmol/L (20-31)
[2024-11-15 08:21] LABS: BUN/Creatinine Ratio 22.2 (10.0-20.0); Blood Urea Nitrogen 12 mg/dL (9-23)
[2024-11-15 08:22] LABS: INR 0.98 (0.9-1.15); Partial Thromboplastin Time 29.9 SEC (24.5-34.5); Prothrombin Time 10.4 sec (9.3-11.8)
[2024-11-15 08:25] LABS: Glucose 66 mg/dL (74-106)
--- NOTE | 2024-11-15 13:54 | DVHPN2 ---
Progress Note - Dictate Date Seen: Nov 15, 2024 Medical Necessity Reason Pt with a Central, PICC or Fol: No Subjective She is clinically stable. Waiting for her international relations teacher Dr. Michael johnson to evaluate her. Echocardiogram results noted. No complaints of dizziness or chest pain. vital signs Vital Sign Date Time Temp Pulse Resp B/P (MAP) Pulse Ox O2 Delivery O2 Flow Rate FiO2 11/15/24 13:00 98.0 80 18 121/75 (90) 98 98.0 11/15/24 08:00 Room Air* 0 21 Total Intake and Output 11/14/24 11/14/24 11/15/24 15:00 23:00 07:00 Intake Total 600 ml Balance 600 ml medications Current Medications Medications Dose Ordered Sig/Clif[place] Route Start Time Stop Time Status Last Admin Dose Admin Nitroglycerin 0.4 mg Q5MINP PRN SL 11/14/24 12:30 Morphine Sulfate 2 mg Q30M PRN IV 11/14/24 12:30 Aspirin 81 mg DAILY PO 11/15/24 10:00 Enoxaparin Sodium 80 mg Q12HR SC 11/14/24 22:00 11/15/24 08:15 80 MG Atorvastatin Calcium 40 mg HS PO 11/14/24 22:00 11/14/24 22:39 40 MG Famotidine 20 mg DAILY PO 11/15/24 10:00 Metoprolol Tartrate 25 mg BID PO 11/14/24 22:00 Ondansetron HCl 4 mg Q4HPRN PRN IV 11/14/24 12:30 Morphine Sulfate 2 mg Q4HPRN PRN IV 11/14/24 12:30 Acetaminophen 650 mg Q4HP PRN PO 11/14/24 12:30 11/15/24 13:17 650 MG Ipratropium [place] 0.5 mg Q4HPRN PRN NEB 11/14/24 12:30 Albuterol 2.5 mg Q4HPRN PRN NEB 11/14/24 13:00 objective Alert awake oriented x3. HEENT neck supple no JVD. Heart regular rate and rhythm S1 S2. Lungs fair air movement without rales or wheezing. abdomen obese soft nontender positive bowel sounds. Extremities no edema positive pulses. laboratory and microbiology Laboratory Tests 11/15/24 05:11 Test 11/15/24 05:11 Range/Units Serum Glucose 66 L 74-106 mg/dL Assessment/Plan MRI brain no acute pathology. We will adjust her cardiac medications given a low ejection fraction around 40%. Await Cardiology further recommendations. Otherwise continue rest of supportive care and treatment. Patient says she does not tolerate beta brook/metoprolol and did not take it though she is recommended. Discussed with the patient at bedside regarding care plan. Problems(with codes): (1) Chest pain (2) NSTEMI (non-ST elevated myocardial infarction) (3) Osteoarthritis (4) Chest pain Plan discussed with: Patient, Other MIKE BARCENAS MD Nov 15, 2024 13:54
[2024-11-15] MEDS ORDERED: CARV3.1240 PO (16:09)
--- NOTE | 2024-11-15 19:02 | DVHPN2 ---
Consult Progress Note Date Seen: Nov 15, 2024 Subjective Patient reports: Feels better Review of Systems: HEENT:Normal, CVS:Abnormal (Patient felt palpitations that are now resolved.), RESPIRATORY:Normal, GI:Normal, :Normal, MSK:Normal, NEURO:Abnormal (Dizziness and lightheadedness. Now resolved. Vertigo.) Objective vital signs Vital Sign Date Time Temp Pulse Resp B/P (MAP) Pulse Ox O2 Delivery O2 Flow Rate FiO2 11/15/24 17:00 97.6 91 18 114/67 (83) 95 97.6 11/15/24 09:24 Room Air* 0 21 Total Intake and Output 11/14/24 11/14/24 11/15/24 15:00 23:00 07:00 Intake Total 600 ml Balance 600 ml medications Current Medications Medications Dose Ordered Sig/Clif[place] Route Start Time Stop Time Status Last Admin Dose Admin Nitroglycerin 0.4 mg Q5MINP PRN SL 11/14/24 12:30 Morphine Sulfate 2 mg Q30M PRN IV 11/14/24 12:30 Aspirin 81 mg DAILY PO 11/15/24 10:00 Enoxaparin Sodium 80 mg Q12HR SC 11/14/24 22:00 11/15/24 08:15 80 MG Atorvastatin Calcium 40 mg HS PO 11/14/24 22:00 11/14/24 22:39 40 MG Famotidine 20 mg DAILY PO 11/15/24 10:00 Ondansetron HCl 4 mg Q4HPRN PRN IV 11/14/24 12:30 Morphine Sulfate 2 mg Q4HPRN PRN IV 11/14/24 12:30 Acetaminophen 650 mg Q4HP PRN PO 11/14/24 12:30 11/15/24 13:17 650 MG Ipratropium [place] 0.5 mg Q4HPRN PRN NEB 11/14/24 12:30 Albuterol 2.5 mg Q4HPRN PRN NEB 11/14/24 13:00 Carvedilol 3.125 mg Q12HR PO 11/15/24 22:00 Examination: GENERAL:Normal, HEENT:Normal, NECK:Normal, LUNGS:Normal, CVS:Abnormal (Noted drop in cardiac function. Ejection fraction down to 40% from 60% previously with wall motion abnormalities consistent with myocardial infarction. CAD.), ABDOMEN:Normal, MSK:Normal, SKIN:Normal, NEURO:Normal, :Normal laboratory and microbiology Laboratory Tests 11/15/24 05:11 Test 11/15/24 05:11 Range/Units Serum Glucose 66 L 74-106 mg/dL Problem List/Assessment/Plan Problem List/Assessment/Plan Dysrhythmias. Vertigo. Mild cardiomyopathy of new onset. Regional wall motion abnormalities consistent with CAD. No chest pain. Underlying history of CAD with previous coronary bypass grafting. Palpitations. PAF. Recommendations: Given her drop in ejection fraction we will discontinue flecainide. Patient can not take amiodarone or beta blockers. We will place on digoxin and continue with ARB. We will do outpatient workup. Place on digoxin for dysrhythmia. Consider outpatient angiographic evaluation if needed. Plan discussed with: Patient, Other (Dr. Lucas) Date of Service: Nov 15, 2024 Billing Provider: GENNARO BAIN Sr., MD Cardiology Common Codes: 48467-[id number] GENNARO BAIN Sr., MD Nov 15, 2024 19:02
[2024-11-15] MEDS: DIGOXIN 0.125 MG TAB PO ONE (19:54)
[2024-11-15] MEDS: CARVEDILOL 3.125 MG TAB PO SCH (21:45)
[2024-11-16] VITALS (8 sets, daily range): BP systolic 98–139; BP diastolic 64–89; PULSE 74–95; RESP 16–17; TEMP 97.3–98.3; O2SAT 93–96
[2024-11-16] MEDS: DIGOXIN 0.125 MG TAB PO SCH (10:16)
[2024-11-16] MEDS ORDERED: DIGO0.12 PO (12:08)
--- NOTE | 2024-11-16 14:00 | DVHDS2 ---
Discharge Summary Date of Admission Nov 14, 2024 at 12:23 Date of Discharge: Nov 16, 2024 Labs/Diagnostic Data: Laboratory Results Test 11/15/24 05:11 11/14/24 09:32 White Blood Count 6.2 10^3/uL (4.4-10.8) Red Blood Count 4.18 10^6/uL (4.0-5.20) Hemoglobin 13.3 g/dL (12.2-16.2) Hematocrit 38.8 % (36.0-46.0) Mean Corpuscular Volume 92.8 fL (80.0-100.0) Mean Corpuscular Hemoglobin 31.7 pg (28.0-32.0) Mean Corpuscular Hemoglobin Concent 34.2 g/dL (32.0-36.0) Red Cell Distribution Width 16.4 % (11.8-14.3) Platelet Count 199 10^3/uL (140-450) Mean Platelet Volume 7.1 fL (6.9-10.8) Neutrophils (%) (Auto) 60.6 % (37.0-80.0) Lymphocytes (%) (Auto) 33.3 % (10.0-50.0) Monocytes (%) (Auto) 5.4 % (0.0-12.0) Eosinophils (%) (Auto) 0.5 % (0.0-7.0) Basophils (%) (Auto) 0.2 % (0.0-2.0) Neutrophils # (Auto) 3.8 10 ^3/uL (1.6-8.6) Lymphocytes # (Auto) 2.1 10 ^3/uL (0.4-5.4) Monocytes # (Auto) 0.3 10 ^3/uL (0-1.3) Eosinophils # (Auto) 0 10 ^3/uL (0-0.8) Basophils # (Auto) 0 10 ^3/uL (0-0.2) Nucleated Red Blood Cells 0.1 % Prothrombin Time 10.4 sec (9.3-11.8) Prothrombin Time INR 0.98 (0.9-1.15) Activated Partial Thromboplast Time 29.9 SEC (24.5-34.5) Sodium Level 139 mmol/L (136-145) Potassium Level 4.0 mmol/L (3.5-5.1) Chloride Level 106 mmol/L (98-107) Carbon Dioxide Level 23 mmol/L (20-31) Anion Gap 10 (5-15) Blood Urea Nitrogen 12 mg/dL (9-23) Creatinine 0.54 mg/dL (0.550-1.02) Glomerular Filtration Rate Calc 99 mL/min (>90) BUN/Creatinine Ratio 22.2 (10.0-20.0) Serum Glucose 66 mg/dL (74-106) Calcium Level 9.4 mg/dL (8.7-10.4) Troponin I High Sensitivity 85 ng/L (</=34) Urine Color Straw (Yellow) Urine Clarity Clear (Clear) Urine pH 7.0 (5.0-9.0) Urine Specific [place] 1.009 (1.001-1.035) Urine Protein Negative (Negative) Urine Ketones Negative (Negative) Urine Blood Negative /uL (Negative) Urine Nitrite Negative (Negative) Urine Bilirubin Negative (Negative) Urine Urobilinogen Normal mg/dL (Negative) Urine Leukocyte Esterase 2+ /uL (Negative) Urine RBC 1 /hpf (0 - 4) Urine Microscopic WBC 6 /HPF (0-5) Urine Squamous Epithelial Cells Few /hpf (<5) Urine Bacteria None seen /hpf (None Seen) Urine Glucose Normal mg/dL (Normal) Other Laboratory Tests 11/15/24 05:11 Brief Hx & Hospital Course: 69 y/o F, BIBA, with PMHx of CAD, COPD, AFib, HLD, and HCM presents to the ED for CC of dizziness. EMS reports, patient is coming from home where she c/o dizziness with associated hypertension onset, 0300 this morning (11/14/24). Patient relays, dizziness to have woken her up out of her sleep, feeling as if the room was spinning around her. Patient comments, that symptoms prompted her to check her blood pressure; endorses reading of 180/90mmHg. Patient denies nausea, vomiting, chest pain, or shortness of breath. No other symptoms or modifying factors present at this time. She is admitted and evaluated by digital marketing manager and had an echocardiogram. Patient received Lovenox anticoagulation transitioned her oral anticoagulation with Eliquis. Patient's heart rate has controlled. Per Cardiology recommendations her flecainide has been discontinued and started on digoxin. Patient did not tolerate beta blockers due to side effects and low blood pressure. Otherwise she is advised to continue rest of home medications. Patient remained asymptomatic while in the hospital. Therefore it is felt she could be safely discharged home with close outpatient follow-up without digital marketing manager as mentioned. I have talked with the patient regarding this, her hospital diagnosis, treatment she received, discharge medications, discharge instructions and she has verbalized understanding of these and agree with care plan as outlined Consults/Reason for consult Problem List/Assessment/Plan Dysrhythmias. Vertigo. Mild cardiomyopathy of new onset. Regional wall motion abnormalities consistent with CAD. No chest pain. Underlying history of CAD with previous coronary bypass grafting. Palpitations. PAF. Recommendations: Given her drop in ejection fraction we will discontinue flecainide. Patient can not take amiodarone or beta blockers. We will place on digoxin and continue with ARB. We will do outpatient workup. Place on digoxin for dysrhythmia. Consider outpatient angiographic evaluation if needed. Plan discussed with: Patient, Other (Dr. Lucas) Date of Service: Nov 15, 2024 Billing Provider: GENNARO BAIN Sr., MD Cardiology Common Codes: [id number] [facility] Operations or Procedures APPROVED REPORT EXAM: LIMITED Two-dimensional and M-mode echocardiogram with Doppler and color Doppler. Blood Pressure: 126/64 mmHg INDICATION Elevated Troponins Surgery/Intervention CABG: RISK FACTORS Height: 5' 9", Weight: 170 DIMENSIONS LVDd 5.4 (3.8-5.7cm) LA (2D) 4.6 (1.9-4.0cm) Aortic Root 3.6 (2.0- 3.7cm) LVDs 3.7 (2.5-4.0cm) LA (MM) (1.9-4.0cm) Aortic Cusp Exc 1.9 (1.5- 2.0cm) EF (%) 58.0 (55-70%) Rt. Atrium 4.4 (1.9-4.0cm) Asc. Aorta cm IVSd 1.1 (0.7-1.1cm) RV (D) (1.8-2.4cm) PWd 1.1 (0.7-1.1cm) Mitral Valve Mitral Mitral Stenosis E wave 0.70m/s MV Mean GR. mmHg A wave 1.10m/s MV Peak GR. mmHg E/A ratio 0.6 2D MVA cm2 Aortic Valve Aortic Valve Aortic Stenosis V1 0.70m/s AO Mean GR. 3mmHg V2 1.20m/s AO Peak GR. 6mmHg LVOT Diameter 2.5 (1.8-2.4cm) Doppler MELECIO 2.86cm2 Pulmonic Valve V2 1.50m/s Tricuspid Valve TR Velocity 3.00m/s RVSP 40mmHg Other Information Quality : Technically Limited Rhythm : Technically limited study due to body habitus. Conclusion Sinus rhythm. Left atrial enlargement. Concentric LVH. Mild aortic root enlargement. Mild mitral annular calcification. Left ventricular systolic performance is diminished there is anterior hypokinesis anteroseptal hypokinesis is severe. EF of about 40%. Right ventricular function appears normal. Mid and distal anterior wall appeared to be akinetic, anteroseptal and mid septal angela are akinetic. Dyskinetic at the proximal and mid septal segment. Mild mitral and tricuspid regurgitation. No pericardial effusion masses or vegetations. SIGNED BY: GENNARO BAIN Sr., MD SIGNED DATE/TIME: 11/14/241805 Condition at Discharge: Stable Final Diagnosis/Problems List afib, non stemi, ascad Discharge Disposition: Home Discharge Instruct/Medications Diet: Consistent carbohydrate, Cardiac 2g Na,low cholest Activity: No Restrictions, As Tolerated Follow Up/Referral: cardiology 2 weeks Medications: as prescribed and per mn medication list. Stop Flecanide per cardiology. New Medications: Digoxin (Digoxin) 125 Mcg Tab 125 MCG PO DAILY, #30 TAB 1 Refill Continued Medications: Apixaban Base (Eliquis) 2.5 Mg Tab 2.5 MG PO DAILY, TAB [id number] (Trelegy Ellipta 100-62.5-25 Mcg/INH) 1 Aer Aer 1 PUFF INH DAILY Folic Acid (Folic Acid) 1 Mg Tab 1 TAB PO BID Furosemide (Furosemide) 20 Mg Tab 1 TAB PO BID Hydrocodone-Acetaminophen (Hydrocodone/Acetaminophen 5-325 mg) 1 Tab Tab 1 TAB PO TID PRN for PAIN SCALE 7 THRU 10 Methotrexate (Methotrexate Sodium) 2.5 Mg Tab 8 TAB PO QWEEKLY Tiotropium [place]-Olodaterol (Stiolto Respimat 2.5-2.5 Mcg/Act) 1 Aer Aer 2 AER IN BID, AER Discontinued Medications: Flecainide Acetate (Flecainide Acetate) 50 Mg Tab 50 MG PO Q12HR for 30 Days Meloxicam (Meloxicam) 15 Mg Tab 15 MG PO DAILY, TAB Prednisone (Prednisone) 10 Mg Tab PO Discharge Statement: "Patient was advised to return to the ER or call 911 if any headaches, dizziness, shortness of breath, chest pain, abdominal pain, bleeding, fevers, or worsening of medical condition. Patient was counseled about treatment plan, medications, possible side effects, patientverbalized understanding. All questions were answered to the best of my ability. This discharge took greater then 30 minutes in planning, reviewing documentation, counseling the patient, and discussing with other team members." ASSESSMENT ASSESSMENT Assessment afib, non stemi, MIKE Chávez MD Nov 16, 2024 14:00
== END 2024-11-16 17:34 | disposition home or self-care (01) | DRG 281 ==
LOC: EDBD 06:22 → ER 06:22 → OVERFLOW 12:23 → TELE-WESTW 18:30
PROVIDERS: ADMIT Hospitalist; ATTEND Hospitalist
DX: I21.4 Non-ST elevation (NSTEMI) myocardial infarction (principal); I42.0 Dilated cardiomyopathy; I48.0 Paroxysmal atrial fibrillation; I25.10 Atherosclerotic heart disease of native coronary artery without angina pectoris; I10 Essential (primary) hypertension; J44.9 Chronic obstructive pulmonary disease, unspecified; Z95.1 Presence of aortocoronary bypass graft; Z90.710 Acquired absence of both cervix and uterus; Z88.0 Allergy status to penicillin; Z87.891 Personal history of nicotine dependence; Z82.49 Family history of ischemic heart disease and other diseases of the circulatory system; Z80.1 Family history of malignant neoplasm of trachea, bronchus and lung; Z88.1 Allergy status to other antibiotic agents; Z88.8 Allergy status to other drugs, medicaments and biological substances; Z79.899 Other long term (current) drug therapy
CPT/HCPCS: 36415; 70450; 70551; 71045; 80048; 81001; 84484; 85025; 85610; 85730; 93005; 93306; 99291; G0378; Q0162